=== PATIENT | female | born 1980 | race Caucasian/White ===

== ENCOUNTER 2022-02-10 17:43 | Outpatient (CLI) | payer MEDICAID, SELFPAY ==
--- OUTSIDE RECORDS SUMMARY | 2022-03-18 13:00 | XMS_ITS | Clinical Summary ---
:1980 Author Organization [facility] Address [address] [place] [address] Care Team Providers Name Role Phone Elsewhere, Pcp Primary Care Provider Unavailable Source Comments Patient records contain information from all sites at [facility]. For routine questions regarding patient records, call [phone] during business hours, M-F 8:00 AM - 5:00 PM Central Time. Record requests for emergency care only can be directed to [phone] at any time.[facility] Social History Tobacco Use Types Packs/Day [...] / Group Dates BLUE CROSS BCBS BLUE [id number] 2020-Pres ATTN: Radha martinez HMO BLUE SHIELD PLUS HMO ent CONSUMER [facility] [address] [address] [place] [address] Care Teams Competency Evaluated Nurse Aide Relationship Specialty Start Date End Date Elsewhere, Pcp PCP - General 06/14/18
--- OUTSIDE RECORDS SUMMARY | 2022-03-18 13:00 | XMS_ITS | Encounter Summary ---
:1980 Author Organization [facility] Address [address] [place] [address] Care Team Providers Name Role Phone Elsewhere, Pcp Primary Care Provider Unavailable Reason for Visit Reason Comments Drug Screen BIC Encounter Details Date Type Department Care Team Description 06/22/2019 Clinical Support Department of Mayuri Tuttle Drug Scre en (Primary Occupational Medicine Duy Garcia, M .P.H. Dx) in [facility] [address] [facility] [address] [place] [phone] Social History Tobacco Use Types Packs/Day Years Used Date Smoking Tobacco: Every Day Sex Assigned at Date Recorded Not on file documented as of this encounter Progress Notes Radha Walker L.P.N. - 06/22/2019 9:00 AM CDT Pre employment rapid uds completed for [employer]. Uneventful collection. documented in this encounter Plan of Treatment Scheduled Orders Name Type Priority Associated Diagnoses Order S chedule OCC Drug screening Procedures Routine Drug Screen Ordered: 06/22/2019 documented as of this encounter Visit Diagnoses Diagnosis Drug Screen - Primary documented in this encounter Care Teams Log Washer Relationship Specialty Start Date End Date Elsewhere, Pcp PCP - General 06/14/18 documented as of this encounter
--- OUTSIDE RECORDS SUMMARY | 2022-03-18 13:00 | XMS_ITS | Encounter Summary ---
:1980 Author Organization [facility] Address [address] [place] [address] Care Team Providers Name Role Phone Elsewhere, Pcp Primary Care Provider Unavailable Encounter Details Date Type Department Care Team Description 02/21/2021 Orders Only [facility] PCP [facility] Sa kari Damian M.D. [address] [place], [place] [phone] (Wo rk) Social History Tobacco Use Types Packs/Day Years Used Date Smoking Tobacco: Every Day Sex Assigned at Date Recorded Not on file documented as of this encounter Plan of Treatment Not on filedocumented as of this encounter Visit Diagnoses Not on filedocumented in this encounter Care Teams Regional Medical Director Relationship Specialty Start Date End Date Elsewhere, Pcp PCP - General 06/14/18 documented as of this encounter
--- OUTSIDE RECORDS SUMMARY | 2022-03-18 13:00 | XMS_ITS | Encounter Summary ---
:1980 Author Organization [facility] Address [address] [place] [address] Care Team Providers Name Role Phone Unavailable Primary Care Provider Unavailable Encounter Details Date Type Department Care Team Description 10/27/2011 - Hospital Encounter HX [facility] PSYCH JoeBassem Gregg, 10/31/2011 M.D. [address] [place] [id number] Social History Tobacco Use Types Packs/Day Years [...] 10/31/2011 8:20 AM CDT Discharge Medication List [facility] [address] [place] [id number] Discharge Medication List Name: BEE POLANCO Current Date: 10/31/2011 08:20:38 : 1980 12:00 AM Patient Address: [address] [facility] [address] Patient Primary Care Provider: Name: JEM SUAREZ MD Phone: Discharge Diagnosis: Major Depressive Disorder, Recurrent Episode, in Partial or Unspecified Remission [facility] in [place] would like to thank you for allowing [...] BASSEM DIAZ MD Signed On:31-OCT-2011 08:11:15 Source: [facility] Datanomic Document Id: [id number] Laquita Funk R.N. - 10/31/2011 8:20 AM CDT Inpatient Discharge Instructions [facility] [address] [place] [address] Patient Discharge Instructions Name: BEE POLANCO Current Date: 10/31/2011 08:20:35 : 1980 12:00 AM Patient Address: [address] [place] [address] Patient Primary Care Provider: Name: JEM SUAREZ MD Phone: Discharge Diagnosis: Major Depressive Disorder, Recurrent Episode, in Partial or Unspecified Remission [facility] in [place] would like to thank you for allowing us to assist you with your healthcare needs. The following includes patient education materials and information regarding your injury/illness. Comment: BEE POLANCO has been given the following list of follow-up instructions, prescriptions, and patient education materials: Follow-up Instructions With: Address: When: Dr. Suarez [facility], [address] [place] [address] 11/05/2011 02:20:00 Comments: Primary Care provider SHERRI Braden NICOLE ANN , have received the attached patient education materials/instructions and have verbalized understanding: Patient Signature Date/Time Provider Signature Date/Time 18120 Depression: Tips to Help Yourself As your [...] when you can. Go to a movie, Moximedgame, voodoo service, or social event. Talk openly with [...] diet helps keep your body healthy. ?? 5460-2298 [employer], [address] [place] [address], [place] [address]. All rights reserved. This information is not intended as a substitute for professional medical care. Always follow your healthcare professional's instructions. [facility] [address] [place], [place] [address] Name: BEE POLANCO Current Date: 10/31/2011 08:20:35 This document has images extracted. Please consider using YingYang for all your patient education needs. Source: [facility] Datanomic Document Id: [id number] Laquita Funk R.N. - 10/31/2011 7:53 AM [...] FUNK RN - 10/31/2011 7:53 CDT [facility] Document Id: [id number] Bassem Diaz M.D. - 10/31/2011 12:00 AM CDT DISCHARGE SUMMARY Event Type: SUM Date of : 1980 DICTATED BY: Bassem Diaz MD DATE OF SERVICE: 10/31/2011 DISCHARGE DIAGNOSES [place] 1: Anxiety disorder, not otherwise specified. Major depression. Partner relational problem. Alcohol dependence. Cannabis dependence. Lorazepam abuse. [place] 2: Antisocial features. [place] 3: Night sweats thought to be possibly secondary to paroxetine use. [place] 4: Severity of psychosocial stressors: Family, interpersonal, and employment concerns. [place] 5: Current GAF: 37. IDENTIFICATION: This is a 31-year-old woman residing in [place], [place]. SIGNIFICANT FINDINGS: This is the first [facility] Psychiatric Services Unit admission for this woman. [...] be seen by Dr. Suarez for followup. MT:fredis cc Electronically Signed By: BASSEM DIAZ MD On: 11/03/2011 09:20 AM Source: [facility] AMCDICTAPHONESYS Document Id: [id number] Jorge Ly R.N. - 10/27/2011 11:19 PM CDT ED Discharge Instructions [place] [address] [place] [address] Name: BEE POLANCO Date of : 1980 12:00 AM Visit Date: 10/27/2011 7:21 PM Address: [address] [place] [address] Primary Care Provider: JEM SUAREZ MD IMPORTANT: [facility] in [place] would like to thank you for allowing [...] arrange a ride home with a responsible libertarian. SHERRI Braden NICOLE ANN , or responsible libertarian have received this information and my questions [...] arrange a ride home with a responsible libertarian. I, BEE POLANCO , or responsible libertarian have received this information and my questions have been answered. I have discussed any challenges I see with this plan with the nurse or physician. Patient Signature or Responsible Constitution Party/Relationship Date/Time Provider Signature Date/Time Source: [employer] Document Id: [id number] Jorge Ly R.N. - 10/27/2011 11:19 PM CDT ED Depart Summary [facility] Emergency Department / Urgent Care Clinical Discharge Summary PERSON INFORMATION Name BEE POLANCO Age 31 Years 1980 12:00 AM Sex Female Language Bengali PCP JEM SUAREZ MD Marital Status Single Visit Id Visit Reason DIRECT ADMIT Specialty Enc Type Emergency Med Service Emergency Medicine Referred by [facility] ED/UC Discharge Tracking Id [id number] Checkout 10/27/2011 11:19 PM Checkin 10/27/2011 7:21 PM Acuity Dispo Type Admitted as Inpatient to this Hospital Arrival 10/27/2011 7:21 PM Reg Status Complete LOS 000 03:58 Address: [address] [place] [address] Comment: PROVIDER INFORMATION Provider Role Provider Contact Time DIAGNOSIS Comment: PATIENT EDUCATION INFORMATION Instructions: Follow up: Source: [employer] Document Id: [id number] documented in this encounter Progress Notes Batool [...] MATTHEWS OTR - 10/31/2011 11:19 CDT [facility] Document Id: [id number] Bassem Diaz M.D. - 10/31/2011 12:00 AM CDT PROGRESS/PROCEDURE NOTE Event Type: PROG Date of : 1980 DICTATED BY: Bassem Diaz MD DATE: 10/31/2011 IMPRESSION/REPORT/PLAN IMPRESSION: [place] 1: Alcohol dependence. Cannabis dependence. Lorazepam abuse. Substance-induced mood disorder versus mood disorder, not otherwise specified versus major depressive disorder. Anxiety, not otherwise specified. [place] 2: Antisocial features. [place] 3: History of self-injurious behaviors. [place] 4: Severity of psychosocial stressors: Relationship; parenting; unemployment concerns; financial concerns. [place] 5: Current GAF: 37. PLAN: The patient [...] relapse and suicide prevention plan with her. MT:kati cc Electronically Signed By: BASSEM DIAZ MD On: 11/03/2011 09:19 AM Source: [facility] AMCDICTAPHONESYS Document Id: [id number] Conversion, Historical Provider Ser - 10/30/2011 2:35 PM CDT clinical staffing note Clinical Staffing Note In attendance: Psychiatrist: Dr. Diaz Psychologist: Dr. Faustin Inpatient Therapist/Supervisor [employer]: Dr. White Wellness Practitioner: Maty Stratton Occupational [...] Date: 10/31/11 Electronically Signed By: MESHA WHITE PSY.D.,VIKRAM On: 10/30/2011 02:40 PM Source: [facility] POWERCHART Document Id: [id number] Migel Stratton - 10/30/2011 1:40 PM CDT WELLNESS PT JOINING IN THE LEARNING AND PRACTICE OF BREATHWORK AND IMAGERY. THE PT STATES THAT SHE HAS NEVEREXPERIENCED IMAGERY A CALMING TECHNIQUE BUT SHE DID FIND IT VERY HELPFUL THIS MORNING AND LEFT HER FEELING VERY RELAXED. Electronically Signed By: MIGEL STRATTON On: 10/30/2011 01:42 PM Source: [employer] Document Id: [id number] Batool Matthews OFredy - 10/30/2011 1:09 PM CDT OT Daily [...] MATTHEWS OTR - 10/30/2011 13:09 CDT Source: [employer] Document Id: [id number] Bassem Diaz M.D. - 10/30/2011 12:00 AM CDT PROGRESS/PROCEDURE NOTE Event Type: PROG Date of : 1980 DICTATED BY: Bassem Diaz MD DATE: 10/30/2011 IMPRESSION/REPORT/PLAN [place] 1: Major depression. Anxiety disorder, not otherwise specified. Partner relational problem. Alcohol abuse versus dependence. Cannabis abuse. Lorazepam abuse by history. [place] 2: Antisocial features. [place] 3: History of self-injurious behaviors. PLAN: C4 [...] after discussion with her outpatient provider prescriber. MT:sandy cc Electronically Signed By: BASSEM DIAZ MD On: 11/03/2011 09:20 AM Source: [facility] AMCDICTAPHONESYS Document Id: [id number] Conversion, Historical Provider Ser - 10/29/2011 1:50 PM CDT CBT GROUP Reviewed Cognitive Behavioral Therapy (CBT): cognitive distortions and schemas. Met goal by identifying distorted thoughts and schemas. Actively participated in group. Demonstrated a very pleasant attitude. Electronically Signed By: MESHA WHITE PSY.D., LP On: 10/29/2011 01:50 PM Source: [employer] Document Id: [id number] Batool Matthews O.T. - 10/29/2011 1:40 PM [...] MATTHEWS OTR - 10/29/2011 13:40 CDT Source: [employer] Document Id: [id number] Bassem Diaz M.D. - 10/29/2011 12:00 AM CDT PROGRESS/PROCEDURE NOTE Event Type: PROG Date of : 1980 DICTATED BY: Bassem Diaz MD DATE: 10/29/2011 IMPRESSION/REPORT/PLAN ASSESSMENT: [place] 1: Major depressive disorder. Rule out substance-induced mood disorder. Rule out anxiety disorder. Partner relational conflict. Alcohol abuse versus dependence. Lorazepam abuse (by history.). [place] 2: Deferred. [place] 3: History of self-injurious behaviors. PLAN: C4 [...] her mother, and also her drinking pattern. MT:hai cc Electronically Signed By: BASSEM DIAZ MD On: 11/03/2011 09:21 AM Source: [facility] AMCDICTAPHONESYS Document Id: [id number] YT Haresh Faustin Psy.D., L.P. - 10/29/2011 12:00 AM CDT PROGRESS/PROCEDURE NOTE Event Type: PROG Date of : 1980 DICTATED BY: Haresh Faustin PsyD, LP DATE: 10/29/2011 IMPRESSION/REPORT/PLAN [place] 1: Major depression. Anxiety disorder, not otherwise specified. Partner relational problem. Alcohol abuse versus dependence. Cannabis abuse. Lorazepam abuse by history. [place] 2: Antisocial features. PLAN: Continue with evaluation [...] FAUSTIN PsyD/VIKRAM On: 10/29/2011 01:48 PM Source: [facility] AMCDICTAPHONESYS Document Id: [id number] Conversion, Historical Provider Ser - 10/28/2011 2:27 PM CDT CBT GROUP Patient attended Cognitive Behavioral Therapy (CBT) group: [facility]. Patient was activelyengaged in treatment and completed activity of identifying negative thoughts, cognitive distortions,and more realistic ways of thinking. Patient displayed a pleasant attitude. Electronically Signed By: MESHA WHITE PSY.D., LP On: 10/28/2011 02:27 PM Source: [facility] POWERCHART Document Id: [id number] Sunil Faye O.T.AJoanna - 10/28/2011 12:28 PM CDT OT Daily [...] FAYE OT - 10/28/2011 12:28 CDT Source: [facility] GoPlaceItCHART Document Id: [id number] Batool Matthews O.T. - 10/28/2011 12:00 AM CDT PROGRESS/PROCEDURE NOTE Event Type: PROG Date of : 1980 DICTATED BY: JOYCE Motley [place]# [id number] DATE: 10/28/2011 PRIMARY DIAGNOSIS: The patient reported she has a history of depression. REASON FOR ADMISSION: The patient stated, suicidal thoughts because of our relationship. The patient was assessed at [facility] Emergency Department due to depression and suicidal thoughts with a plan to overdose on her medications. The patient was transferred to [facility] Psychiatric Services Unit for further evaluation [...] to go to college horticultural and also Czech. 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 INTERESTS/LEISURE: The patient likes to spend [...] basic expenses. 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 SOCIAL ENVIRONMENT: The [...] MATTHEWS OTR On: 10/31/2011 11:22 AM Source: [facility] AMCDICTAPHONESYS Document Id: [id number] documented in this encounter H&P Notes Batool [...] MATTHEWS OTR - 10/28/2011 14:22 CDT Source: [facility] POWERCHART Document Id: [id number] YT Bassem Diaz M.D. - 10/28/2011 12:00 AM CDT HISTORY & PHYSICAL Event Type: ADM DATE OF EXAMINATION: 10/28/2011 DATE OF ADMISSION: 10/27/2011 IMPRESSION/REPORT/PLAN ASSESSMENT: [place] 1: Major depressive disorder. Rule out substance-induced mood disorder. Rule out anxiety disorder. Partner relational problem. Alcohol abuse versus dependence. Lorazepam abuse (by history). [place] 2: Deferred. [place] 3: History of self-injurious behaviors. [place] 4: Severity of psychosocial stressors: Employment, financial, relationship concerns. [place] 5: Current Global Assessment of Functioning (GAF): [...] This is a 31-year-old woman residing in [place], [place]. CHIEF COMPLAINT: Just problems. HISTORY OF PRESENT ILLNESS This is the first [facility] Inpatient Psychiatric Services Unit admission for this [...] hours p.r.n. ALLERGIES No known drug allergies. Xetv-scx-hveuwqc medication use: Denied. Alcohol use: Yes, not [...] SOCIAL HISTORY The patient was born in [place], [place]. She has 2 siblings. She states, [...] to school when my mom was in [employer]. She graduated in 1998 after which, I [...] Substance abuse. Dictated By: Bassem Diaz MD MT:maninder cc Electronically Signed By: BASSEM DIAZ MD On: 11/03/2011 09:21 AM Source: [facility] AMCDICTAPHONESYS Document Id: [id number] documented in this encounter Consult Notes Conversion, [...] bus station and heading back to the [facility]. She is wanting to do some individual counseling and possible couples counseling. She denied that there is any access to guns or stockpiles of medications. ECW:fredis cc Electronically Signed By: MESHA WHITE PSY.D., LP On: 11/04/2011 08:18 AM Source: [facility] AMCDICTAPHONESYS Document Id: [id number] Conversion, Historical Provider Ser - 10/29/2011 12:00 AM CDT INPATIENT PSYCH HISTORY Event Type: CON Date of : 1980 DICTATED BY: Mesha White PsyD DATE: 10/29/2011 COLLATERAL INFORMATION: I spoke with the patient's mother, Eulalia Bernstein, (phone number is [phone]). She stated the patient has not been [...] PSY.D., LP On: 10/30/2011 08:02 AM Source: [facility] AMCDICTAPHONESYS Document Id: [id number] Orville Andres L.A.D.C. - 10/29/2011 12:00 AM CDT CONSULTATION Event Type: CON Date of : 1980 DICTATED BY: LIZ Frey II [facility] FAMILY PHYSICIAN: TYPE OF CONSULTATION: CHEMICAL DEPENDENCY [...] report. HIREN:ananth cc Electronically Signed By: ORVILLE ANDRES ,[facility] On: 11/04/2011 09:03 AM Source: [facility] AMCDICTAPHONESYS Document Id: [id number] Conversion, Historical Provider Ser - 10/28/2011 12:00 AM CDT INPATIENT PSYCH HISTORY Event Type: CON Date of : 1980 DICTATED BY: Mesha White PsyD DATE: 10/28/2011 IDENTIFYING INFORMATION: Patient is a 31-year-old female from [place]. PRESENTING PROBLEM: The patient reported that she [...] denied developmental delays. She was born in [place] and raised all over [place] saying she moved around a lot. She [...] access to guns or stockpiles of medications. SPIRITUALITY/SABIANISM BELIEF: The patient denied. PATIENT GOALS FOR TREATMENT: Patient reported I want to get my head straight. She also expressed a desire to look at her medications. COLLATERAL INFORMATION: Patient authorized contact with her mother, Latanya Bernstein ([phone]). ECW:jonny/maninder/jonny cc Electronically Signed By: MESHA WHITE PSY.D., LP On: 10/30/2011 08:11 AM Modified by and Electronically Signed by: MESHA WHITE PSY.D.,VIKRAM On: 10/30/2011 08:11 AM Source: [facility] AMCDICTAPHONESYS Document Id: [id number] Nani Strong, Ph.D. - 10/27/2011 12:00 AM CDT CONSULTATION Event Type: CON Date of : 1980 DICTATED BY: Nani Strong, PhD, FAMILY PHYSICIAN: TYPE OF CONSULTATION: Mental Health Phone Consultation DATE OF CONSULTATION: 10/27/2011 CHIEF COMPLAINT/REASON FOR VISIT Bee Polanco a 31-year-old female from [place], [place], who is currently presenting to the Emergency Department in [place]. She has been depressed with suicidal thoughts and plan of overdosing on all her medication. Based on the assessment of the patient by the Emergency Department personnel at [place], it was determined that the patient is in need of inpatient psychiatric care. However, [place] has no psychiatric beds available and thus the need for the patient to be transferred for this care. [facility] [place] was contacted to determine if the patient can be received by this facility. We are doing so. PRESENTING PROBLEM: Bee Polanco is a 31-year-old female who has reportedly been experiencing depression, possibly connected to relationship difficulties with her significant other. It was reported by the Emergency Department staff at [place] that she has been doing some binge [...] She did indicate to nursing staff at [place] that her plan is to overdose on all of her medications. The patient currently is not involved in any mental health services. She had been seen in the past year in the Emergency Department at [place], and this was reportedly for mental health support. At that time, she was recommended to seek outpatient mental health services, but she has reportedly not done so to date. The patient is currently prescribed both Paxil and Ativan by her primary care provider. She did have a blood alcohol level of 0.01 on this day according to the staff at [place]. She is also positive for THC by report. The patient reportedly has no legal issues pending at this time. She has presented as cooperative and not violent or resistant. Nonetheless, [place] is placing her on a hold. The patient is going to be transferred to [facility] [place], specifically to be admitted to the Psychiatric Services Unit. This will be the first inpatient psychiatric hospitalization for the patient according to [place]. As noted, she is being placed on a hold and will be transported by ambulance. Her significant other has indicated that once she is deemed ready for discharge from inpatient psychiatric care he is willing to travel to [place] in order to transport her back to her community. BERNARDA:kati cc Electronically Signed By: NANI STRONG PhD/LP On: 10/28/2011 08:01 AM Modified by and Electronically Signed by: NANI STRONG PhD/LP On: 10/28/2011 08:01 AM Source: [facility] AMCDICTAPHONESYS Document Id: [id number] documented in this encounter Nursing Notes Laquita [...] FUNK RN On: 10/31/2011 07:57 AM Source: [facility] Document Id: [id number] Kendra Cohen R.N. - 10/31/2011 12:50 AM CDT sleep Pt sleeping Electronically Signed By: KENDRA COHEN RN On: 10/31/2011 12:50 AM Source: [employer] Document Id: [id number] Laquita Funk R.N. - 10/30/2011 11:55 AM CDT Wanting information on taking a bus back to the [facility]. Gave patient information taking shuttle to [place] from [employer] shuttle leaves at 2 p.m. checking by 1:45 and cost is $40.50 and would arrive in [facility] at 5:30 p.m. Electronically Signed By: LAQUITA FUNK RN On: 10/30/2011 11:57 AM Source: [facility] Document Id: [id number] Amelia Liu R.N. - 10/30/2011 5:33 AM CDT slept all night, offers no complaints. Electronically Signed By: AMELIA SMITH RN On: 10/30/2011 05:33 AM Source: [facility] Document Id: [id number] Laquita Funk R.N. - 10/29/2011 1:33 PM CDT [facility]. [...] FUNK RN On: 10/29/2011 01:38 PM Source: [facility] Document Id: [id number] Linda Yadav R.N. - 10/28/2011 10:20 PM [...] YADAV RN On: 10/28/2011 10:22 PM Source: [facility] Document Id: [id number] Janet Suero R.N. - 10/28/2011 1:31 AM CDT pt note Sent from [place] ER as they had no beds, for [...] her boyfriend, although they live together...will need social media content manager to look in to that matter. Denies any health issues. Cooperative, calm and pleasant. Electronically Signed By: JANET SUERO RN On: 10/28/2011 01:41 AM Source: [facility] GoPlaceItCHART Document Id: [id number] documented in this encounter ED Notes Sabrina [...] RN - 10/27/2011 23:06 CDT Allergy Source: [facility] POWERCHART Document Id: [id number] documented in this encounter Miscellaneous Notes Miscellaneous - Laquita Funk R.N. - 10/31/2011 8:20 AM CDT Inpatient Patient Education The following Patient Education Materials have been given to the patient: Patient Education Materials: [facility] Depression: Tips to Help Yourself David [facility] [address] Depression: Tips to Help Yourself As your [...] you can. Go to a movie, ballgame, voodoo service, or social event. Talk openly with [...] diet helps keep your body healthy. ?? 3180-2299 [employer], [address] [place] [address], [place] [address]. All rights reserved. This information is not intended as a substitute for professional medical care. Always follow your healthcare professional's instructions. This document has images extracted. Please consider using YingYang for all your patient education needs. Source: [facility] POWERCHART Document Id: [id number] Miscellaneous - Bassem Diaz M.D. - 10/31/2011 8:11 AM CDT Inpatient Patient Education The following Patient Education Materials have been given to the patient: Patient Education Materials: No instructions were provided. No instructions were provided. Source: [facility] Datanomic Document Id: [id number] Miscellrose - Laquita Funk R.N. - 10/31/2011 7:52 [...] FUNK RN - 10/31/2011 7:52 CDT Source: [facility] [employer]an[employer] Document Id: [id number] Miscellaneous - Laquita Funk R.N. - 10/31/2011 [...] FUNK RN - 10/31/2011 7:50 CDT Source: [facility] Document Id: [id number] Miscellaneous - Kendra Cohen R.N. - 10/31/2011 12:58 [...] COHEN RN - 10/31/2011 0:58 CDT Source: [facility] Document Id: [id number] Cheikh - Kendra Cohen R.N. - 10/31/2011 12:58 [...] COHEN RN - 10/31/2011 0:58 CDT Source: [facility] Datanomic Document Id: [id number] Cheikh - Marnie Peralta R.N. - 10/30/2011 7:13 PM CDT Adult [...] QURESHI RN - 10/30/2011 19:13 CDT Source[facility] Document Id: [id number] Marnie Haynes R.N. - 10/30/2011 5:33 PM [...] Adequate to Meet Safety Needs : Yes MANRIE QURESHI RN - 10/30/2011 17:33 CDT Psycho/Emotional [...] QURESHI RN - 10/30/2011 17:33 CDT Source: [facility] FortressCH[facility] Document Id: [id number] Miscellaneous - Laquita Funk R.N. - 10/30/2011 [...] FUNK RN - 10/30/2011 8:46 CDT Source: [employer] Document Id: [id number] Miscellaneous - Laquita Funk R.N. - 10/30/2011 [...] FUNK RN - 10/30/2011 8:41 CDT Source: [facility] POWERCHART Document Id: [id number] Miscellaneous - Amelia Liu R.N. - 10/30/2011 [...] SMITH RN - 10/30/2011 3:25 CDT Source: [facility] [employer]anomic Document Id: [id number] Miscellaneous - Amelia Liu R.N. - 10/30/2011 [...] SMITH RN - 10/30/2011 3:25 CDT Source: [facility] GoPlaceItCHART Document Id: [id number] Miscellaneous - Laquita Funk R.N. - 10/29/2011 [...] FUNK RN - 10/29/2011 17:11 CDT Source: [employer] Document Id: [id number] Miscellaneous - Laquita Funk R.N. - 10/29/2011 [...] FUNK RN - 10/29/2011 10:13 CDT [facility]: [facility] Document Id: [id number] Miscellaneous - Laquita Funk R.N. - 10/29/2011 [...] FUNK RN - 10/29/2011 10:13 CDT Source: [employer] Document Id: [id number] Miscellaneous - Ariel Sutherland RKallie - 10/29/2011 [...] SUTHERLAND RN - 10/29/2011 0:05 CDT Source: [employer] Document Id: [id number] Cheikh - Ariel Sutherland R.N. - 10/29/2011 [...] SUTHERLAND RN - 10/29/2011 0:04 CDT Source: [employer] Document Id: [id number] Cheikh - Linda Yadav R.N. - 10/28/2011 [...] YADAV RN - 10/28/2011 21:19 CDT Source: [facility] Document Id: [id number] Miscellaneous - Linda Yadav, R.N. - 10/28/2011 [...] YADAV RN - 10/28/2011 21:18 CDT Source: [employer] Document Id: [id number] Miscellaneous - Magnolai Han RJoannaNJoanna - 10/28/2011 2:32 PM CDT [...] 14:32 CDT Psycho/Emotional Detailed Assessment : Yes SERGIO HANCHIKI Quan RN - 10/28/2011 14:32 CDT Psycho/Emotional Detailed Hallucinations Present : None Orientation : Oriented x 3 Participates in Age-specific Activities : Yes Cognition : Cooperative with 1:1 Behavior & General Appearance : Appropriate for situation, Social with peers and staff, interacts appropriately, ADLs self-initiated Behavior/Interaction with Peers/Staff Appropriate : Yes Thought Process Intact : Yes MAGNOLIA HAN RN - 10/28/2011 14:32 CDT Suicide Risk Re-Assessment Ongoing Behaviors/Threats of Harm to Self : No Behaviors/Threats of Harm to Others : No Do you have a plan for suicide? : No MAGNOLIA HAN RN - 10/28/2011 14:32 CDT Nutrition Eating Difficulties : None Appetite : Good MAGNOLIA HAN RN - 10/28/2011 14:32 CDT Stepan Sensory Perception Stepan : No impairment Moisture Stepan : Rarely moist Activity Stepan : Walks frequently Mobility Stepan : No limitations Nutrition Stepan : Adequate Friction and Shear Stepan : No apparent problem Stepan Score : 22 RHONDAOMAYRASERGIOCHIKI Quan RN - 10/28/2011 14:32 CDT Hendrich [...] Fall Risk Score Hendrich II : 1 MAGNOLIA HAN RN - 10/28/2011 14:32 CDT Education General Patient Education Powergrid Topics : Plan of care, Other: Take 5 Individuals Taught : Patient Teaching Evaluation : Verbalizes understanding MAGNOLIA HAN RN - 10/28/2011 14:32 CDT Source: [facility] POWERCHART Document Id: [id number] Miscellaneous - Magnolia Han R.N. - 10/28/2011 [...] HAN RN - 10/28/2011 10:24 CDT Source: [employer] Document Id: [id number] Miscellaneous - Janet Suero RJoannaNJoanna - 10/28/2011 [...] SUERO RN - 10/28/2011 4:58 CDT Source: [employer] Document Id: [id number] Cheikh - Janet Suero R.N. - 10/28/2011 [...] SUERO RN - 10/28/2011 1:29 CDT Source: [facility] POWERCHART Document Id: [id number] Cheikh - Janet Suero R.N. - 10/28/2011 [...] SUERO RN - 10/28/2011 0:54 CDT Source: [facility] POWERCHART Document Id: [id number] Miscellaneous - Janet Suero R.N. - 10/28/2011 [...] SUERO RN - 10/28/2011 0:52 CDT Source: [employer] Document Id: [id number] Miscellaneous - Janet Suero R.N. 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 Notified : No JANET SUERO QUENTIN - [...] CDT Reporting : Other: has restarining order agianst JANET Lees Rose Marie RN - 10/28/2011 0:41 CDT Behavioral Health Screen/Safety Assmt Depressed : Yes Hearing Voices : No Thoughts of Harming Self : Yes BH Thoughts : No Suicide Attempts : No Suicide Plan : Yes Self-destructive Behaviors : No Thoughts of Harming Others : No Time Placed Under Observation : 0:50 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 - 10/27/2011 11:16 PM CDT Communication Note Communication Note Entered On: 10/27/2011 23:16 CDT Performed On: 10/27/2011 23:16 CDT by JORGE LY RN Communication Assessment Communication Note : Patient changed into scrubs and searched by security. Taken to PSU by security. JORGE LY RN - 10/27/2011 23:16 CDT Source: [employer] Document Id: [id number] documented in this encounter Plan of Treatment [...] M.D. LAB HISTORICAL ORDERS Performing Organization Address City/[facility]/ZIP Code Phon e Number POWERCHART Urinalysis, Midstream, with culture if indicated (10/28/2011 9:10 PM CDT) [facility] gist Method Time Signature Source Clean Void POWERCHART Urine HXUr Color Yellow Yellow POWERCHART Appearance Clear Clear POWERCHART Specific 1.010 1.003 - POWERCHART [place], POCT, U 1.035 pH, POCT, Urine 6.5 [...] M.D. LAB URINE ORDERABLES Performing Organization Address [facility] Phon e Number POWERCHART Thyroid-Stimulating Hormone-Sensitive (s-TSH) (10/28/2011 5:32 AM CDT) athologist Signature TSH 2.0 0.3 - 5.0 POWERCHART (Thyrotropin) MIUL Specimen (Source) Anatomical Collection Method Collection Time Re ceived Time Location / / Volume Laterality Blood 10/28/2011 5:32 AM CDT Edwardo Whitfield LAB BLOOD ADD-ON Performing Organization Address City/[facility]/ZIP Code Phon e Number POWERCHART documented in this encounter Visit Diagnoses Not on filedocumented in this encounter
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
== END 2022-02-10 17:44 | disposition home or self-care (01) ==
LOC: AMB 03-18 12:24
PROVIDERS: PCP Family Medicine; Visit Provider Family Medicine
DX: S89.91XA Unspecified injury of right lower leg, initial encounter (principal); W19.XXXA Unspecified fall, initial encounter; Y92.009 Unspecified place in unspecified non-institutional (private) residence as the place of occurrence of the external cause
CPT/HCPCS: A0425; A0433

== ENCOUNTER 2022-02-10 18:19 | Emergency (ER) | payer MEDICAID, SELFPAY ==
[2022-02-10] VITALS (7 sets, daily range): BP systolic 125–143; BP diastolic 77–87; PULSE 82; RESP 20; TEMP 37.1; O2SAT 97–100; BMI 28.2
--- NOTE | 2022-02-10 18:45 | CRLHL7_ITS ---
For Patients: As a result of the Cures Act, medical imaging exams and procedure reports are released immediately into your electronic medical record. You may view this report before your referring provider. If you have questions, please contact your health care provider. Indication: Injury and pain. Technique: Left knee 2 views Comparison: None Findings: Bones: Alignment is normal. No fractures or bone lesions. Joint spaces: No joint effusion. Joint spaces are well maintained. No degenerative changes. Soft tissues: Unremarkable. Impression: No sign of acute injury. Dictated by Eder Dickson MD @ 02/10/2022 7:34:34 PM (Electronically Signed)
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
[2022-02-10] MEDS: 0.9 % SODIUM CHLORIDE 1000 ml 1,000 ML 6000 ML IV (19:02)
[2022-02-10] MEDS: ONDANSETRON 2 MG/ML inj 4 MG IVP (19:02)
[2022-02-10] MEDS: HYDROmorphone 0.5 mg/0.5 ml inj 1 MG IVP (19:02)
[2022-02-10] MEDS: MIDAZOLAM HCL 1 MG/ML inj IVP (19:02)
[2022-02-10 19:26] LABS: Basophils Percent Auto 0.4 % (0.0-3.0); Eosinophils Percent Auto 0.4 % (0.0-7.0); Hematocrit 43.6 % (33.0-51.0); Hemoglobin* 14.5 gm/dL (12.0-16.0); Immature Granulocytes Abs Auto 0.02 K/uL (0.00-0.30); Mean Corpuscular HGB Conc 33 gm/dL (32-36); Mean Corpuscular Hemoglobin 31 pg (26-34); Mean Corpuscular Volume 92 fL (80-100); Monocytes Percent Auto 6.3 % (0.0-11.0); Neutrophils Percent Auto 76.7 % (42.0-72.0); Platelet Count* 211 K/uL (140-440); RDW Coefficient of Variation % 12.9 % (11.5-15.5); Red Blood Count 4.75 m/uL (4.00-5.20); White Blood Count* 11.25 K/uL (4.50-11.00)
[2022-02-10 19:35] LABS: Slide Review Reflex No
[2022-02-10 19:37] LABS: Chloride* 110 mmol/L (96-114)
[2022-02-10 19:38] LABS: Albumin* 4.3 g/dL (3.3-5.0); Potassium* 3.4 mmol/L (3.6-5.1); Sodium* 143 mmol/L (135-149)
[2022-02-10 19:41] LABS: Alanine Aminotransferase* 16 U/L (4-35); Alkaline Phosphatase* 60 U/L (40-150); Aspartate Amino Transferase* 27 U/L (12-35); Bilirubin Direct* 0.1 mg/dL (0.0-0.5); Bilirubin Total* 0.3 mg/dL (0.1-1.5); Blood Urea Nitrogen* 11 mg/dL (5-24); Carbon Dioxide* 22 mmol/L (20-32); Creatinine* 0.8 mg/dL (0.5-1.5); Est. Creatinine Clearance* 85.76; Estimated Glomerular Filt Rate 94 ml/min; Glucose* 81 mg/dL (60-115); Total Protein* 6.7 g/dL (6.0-8.3)
[2022-02-10 19:42] LABS: Calcium* 8.5 mg/dL (8.4-10.6)
--- OUTSIDE RECORDS SUMMARY | 2022-02-10 19:51 | XMS_ITS | Clinical Summary ---
:1980 Author Organization [facility] Address [address] [place] [address] Care Team Providers Name Role Phone Elsewhere, Pcp Primary Care Provider Unavailable Source Comments Patient records contain information from all sites at [facility]. For routine questions regarding patient records, call [phone] during business hours, M-F 8:00 AM - 5:00 PM Central Time. Record requests for emergency care only can be directed to [phone] at any time.[facility] Social History Tobacco Use Types Packs/Day Years Used Date Smoking Tobacco: Every Day Sex Assigned at Date Recorded Not on file Last Filed Vital Signs Vital Sign Reading Time Taken Comments Blood Pressure 120/65 10/31/2011 7:11 AM CDT Pulse 66 10/31/2011 7:11 AM CDT Temperature - - Respiratory Rate - - Oxygen Saturation - - Inhaled Oxygen Concentration - - Weight - - Height 167 cm (5' 5.75) 10/28/2011 12:54 AM CDT Body Mass Index - - Plan of Treatment Health Maintenance Due Date Last Done Comments HIV Screening 1980 Hepatitis B Vaccines (1 of 3 - 1980 3-dose series) Hepatitis C Screening 1980 Lipid (Cholesterol) Screening 1980 Mammogram 1980 Depression Screening (Annual 04/13/2021 PHQ-2) COVID-19 Vaccine (3 - Booster for 05/16/2021 03/21/2021, Wolf series) Influenza Vaccine (#1) 2022 03/06/2021, 05/31/2020, 03/09/2019, Additional history exists Pneumococcal vaccine (0-64 years) 03/21/2022 03/21/2021 (2 - PCV) Cervical Cancer Screening 03/21/2024 03/21/2021 DTaP,Tdap,and Td Vaccines (3 - Td 08/18/2026 08/18/2016, or Tdap) Insurance Payer Benefit Plan Subscriber ID Effective Phone Address Typ e / Group Dates BLUE CROSS BCBS BLUE [id number] 2020-Pres ATTN: Radha martinez HMO BLUE SHIELD PLUS HMO ent [employer] [facility] [address] [address] [place] [address] Care Teams Piping Drafter Relationship Specialty Start Date End Date Elsewhere, Pcp PCP - General 06/14/18
--- OUTSIDE RECORDS SUMMARY | 2022-02-10 19:51 | XMS_ITS | Encounter Summary ---
:1980 Author Organization [facility] Address [address] [place] [address] Care Team Providers Name Role Phone Elsewhere, Pcp Primary Care Provider Unavailable Encounter Details Date Type Department Care Team Description 02/21/2021 Orders Only [facility] PCP TH Sa kari Damian M.D. [address] [place], [place] [phone] (Wo rk) Social History Tobacco Use Types Packs/Day Years Used Date Smoking Tobacco: Every Day Sex Assigned at Date Recorded Not on file documented as of this encounter Plan of Treatment Not on filedocumented as of this encounter Visit Diagnoses Not on filedocumented in this encounter Care Teams Planning Technician Relationship Specialty Start Date End Date Elsewhere, Pcp PCP - General 06/14/18 documented as of this encounter
--- OUTSIDE RECORDS SUMMARY | 2022-02-10 19:51 | XMS_ITS | Encounter Summary ---
:1980 Author Organization [facility] Address [address] [place] [address] Care Team Providers Name Role Phone Elsewhere, Pcp Primary Care Provider Unavailable Reason for Visit Reason Comments Drug Screen BIC Encounter Details Date Type Department Care Team Description 06/22/2019 Clinical Support Department of Mayuri Tuttle Drug Scre en (Primary Occupational Medicine Duy Garcia, M .P.H. Dx) in [facility] [address] [facility] [address] [place] [phone] Social History Tobacco Use Types Packs/Day Years Used Date Smoking Tobacco: Every Day Sex Assigned at Date Recorded Not on file documented as of this encounter Progress Notes Radha Walker, LJoannaP.N. - 06/22/2019 9:00 AM CDT Pre employment rapid uds completed for [employer]. Uneventful collection. documented in this encounter Plan of Treatment Scheduled Orders Name Type Priority Associated Diagnoses Order S chedule [facility] Drug screening Procedures Routine Drug Screen Ordered: 06/22/2019 documented as of this encounter Visit Diagnoses Diagnosis Drug Screen - Primary documented in this encounter Care Teams Tank Maker Wood Relationship Specialty Start Date End Date Elsewhere, Pcp PCP - General 06/14/18 documented as of this encounter
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
--- OUTSIDE RECORDS SUMMARY | 2022-02-10 19:51 | XMS_ITS | Encounter Summary ---
:1980 Author Organization [facility] Address [address] [place] [address] Care Team Providers Name Role Phone Unavailable Primary Care Provider Unavailable Encounter Details Date Type Department Care Team Description 10/27/2011 - Hospital Encounter HX [facility] PSY[facility] JoeBassem Gregg, 10/31/2011 M.D. [address] [place] [id number] Social History Tobacco Use Types Packs/Day Years Used Date Smoking Tobacco: Never Assessed Sex Assigned at Date Recorded Not on file documented as of this encounter Last Filed Vital Signs Vital Sign Reading Time Taken Comments Blood Pressure 120/65 10/31/2011 7:11 AM CDT Pulse 66 10/31/2011 7:11 AM CDT Temperature - - Respiratory Rate - - Oxygen Saturation - - Inhaled Oxygen Concentration - - Weight - - Height 167 cm (5' 5.75) 10/28/2011 12:54 AM CDT Body Mass Index - - documented in this encounter Discharge Summaries Laquita Funk R.N. - 10/31/2011 8:20 AM CDT Discharge Medication List [facility] [address] [place] [id number] Discharge Medication List Name: BEE POLANCO Current Date: 10/31/2011 08:20:38 : 1980 12:00 AM Patient Address: [address] [facility] [address] Patient Primary Care Provider: Name: JEM SUAREZ MD Phone: Discharge Diagnosis: Major Depressive Disorder, Recurrent Episode, in Partial or Unspecified Remission [facility] in [place] would like to thank you for allowing us to assist you with your healthcare needs. The following includes patient education materials and information regarding your injury/illness. Medications Medication/Strength Dose Route Frequency Indications/Special Instructions/Comments paroxetine (paroxetine 10 mg oral tablet) 30 mg Oral once a day Attention: If you have any medications at home that are not on this list, DO NOT take them until youcontact your provider for clarification. Comment: Electronically Signed By: BASSEM DIAZ MD Signed On:31-OCT-2011 08:11:15 [facility] Document Id: [id number] Laquita Funk R.N. - 10/31/2011 8:20 AM CDT Inpatient Discharge Instructions [facility] [address] [place] [address] Patient Discharge Instructions Name: BEE POLANCO Current Date: 10/31/2011 08:20:35 : 1980 12:00 AM Patient Address: [address] [place], [place] [id number] Patient Primary Care Provider: Name: JEM SUAREZ MD Phone: Discharge Diagnosis: Major Depressive Disorder, Recurrent Episode, in Partial or Unspecified Remission [facility] in [place] would like to thank you for allowing us to assist you with your healthcare needs. The following includes patient education materials and information regarding your injury/illness. Comment: BEE POLANCO has been given the following list of follow-up instructions, prescriptions, and patient education materials: Follow-up Instructions With: Address: When: Dr. Suarez [facility], [address] [place] [address] 11/05/2011 02:20:00 Comments: Primary Care provider I, BEE POLANCO , have received the attached patient education materials/instructions and have verbalized understanding: Patient Signature Date/Time Provider Signature Date/Time 26627 Depression: Tips to Help Yourself As your healthcare providers help treat your depression, you can also help yourself. Keep in mind that your illness affects you emotionally, physically, mentally, and socially. So full recovery will take time. Take care of your body and your soul, and be patient with yourself as you get better. Be With Others Dont isolate yourself-youll only feel worse. Try to be with other people. And take part in fun activities when you can. Go to a movie, makeristgame, scientology service, or social event. Talk openly with people you can trust. And accept help when its offered. Keep Your Perspective ?? Depression can cloud your judgment. So wait until you feel better before making major life decisions, such as changing jobs, moving, or getting or . ?? This illness is not your fault. Dont blame yourself for your depression. ?? Recovering from depression is a process. Dont be discouraged if it takes some time to feel better. ?? Depression saps your energy and concentration. So you wont be able to do all the things you used to do. Set small goals and do what you can. Take Care of Your Body People with depression often lose the desire to take care of themselves. That only makes their problems worse. During treatment and afterward, make a point to: ?? Exercise. Its a great way to take care of your body. And studies have shown that exercise helps fight depression. ?? Avoid drugs and alcohol. These may ease the pain in the short term. But theyll only make your problems worse in the long run. ?? Get relief from stress. Ask your healthcare provider for relaxation exercises and techniques to help relieve stress. Eat right. A balanced and healthy diet helps keep your body healthy. ?? 2692-7533 [employer], [address] [place] [address], [place] [address]. All rights reserved. This information is not intended as a substitute for professional medical care. Always follow your healthcare professional's instructions. [facility] [address] [place] [address] Name: BEE POLANCO Current Date: 10/31/2011 08:20:35 This document has images extracted. Please consider using [employer] for all your patient education needs. Source: [facility] [employer] Document Id: [id number] Laquita Funk R.N. - 10/31/2011 7:53 AM CDT Discharge Summary Discharge Summary Entered On: 10/31/2011 7:54 CDT Performed On: 10/31/2011 7:53 CDT by LAQUITA FUNK RN DC Information Discharged to : Home independently Current Home Treatments : None Mode of Discharge : Ambulatory Discharge Transportation : Private vehicle Accompanied By : Other: Significant other Date/Time of Discharge : 10/31/2011 9:30 CDT LAQUITA FUNK RN - 10/31/2011 7:53 CDT Education General Patient Education [employer] Topics : Discharge instructions/Medication list Individuals Taught : Patient Barriers to Learning : None evident Teaching Method : Explanation, Printed materials Teaching Evaluation : Verbalizes understanding LAQUITA FUNK RN - 10/31/2011 7:53 CDT Valuables/Belongings Valuables/Belongings Grid Valuables Sent to Secured Storage Clothes, Patient Valuables : Other: see belongings sheet LAQUITA FUNK RN - 10/31/2011 7:53 CDT Room Orientation/Facility Policy Reviewed : Yes Belongings Sent Home With : Patient at discharge Home Medication Disposition : None brought in with patient LAQUITA FUNK RN - 10/31/2011 7:53 CDT Source: [facility] [employer] Document Id: [id number] Bassem Diaz M.D. - 10/31/2011 12:00 AM CDT DISCHARGE SUMMARY Event Type: SUM Date of : 1980 DICTATED BY: Bassem Diaz MD DATE OF SERVICE: 10/31/2011 DISCHARGE DIAGNOSES Hermann 1: Anxiety disorder, not otherwise specified. Major depression. Partner relational problem. Alcohol dependence. Cannabis dependence. Lorazepam abuse. Hermann 2: Antisocial features. Hermann 3: Night sweats thought to be possibly secondary to paroxetine use. Hermann 4: Severity of psychosocial stressors: Family, interpersonal, and employment concerns. Hermann 5: Current GAF: 37. IDENTIFICATION: This is a 31-year-old woman residing in [place], [place]. SIGNIFICANT FINDINGS: This is the first [facility] admission for this woman. The patient reported stressors as, I've been going out and drinking and blacking out and doing some bad stuff... like having sex with people - I'm not but I'm with someone. The patient reported conflicts with the father of her children. She had recently quit her job. She does difficulties focusing. She acknowledged anhedonia and crying episodes. She believed her anxiety was more than normal. She reported feelings of helplessness, hopelessness, guilt, worthlessness, and also suicidal thoughts. The patient was brought to the Emergency Room, evaluated, and referred for inpatient psychiatric care. DIAGNOSTICS: Laboratory studies: Electrocardiogram showed marked bradycardia with sinus arrhythmia with a ventricular rate of 46 beats minutes, otherwise, normal electrocardiogram. No previous ECGs available. Urinalysis was unremarkable. TSH was 2.0 mIU/L. The patient did undergo a battery of cognitive and psychological inventories including the MARIO, MicroCog an MAQ. The MARIO was of questionable validity. On the [place] Addictions Questionnaire, the patient does report problems with both alcohol and marijuana. On the MicroCog Assessment Battery, the patient obtained a general cognitive functioning index score of 94, which falls in 34th percentile and in the average range overall. The patient did undergo a chemical dependency consultation and was found to have cannabis dependence, alcohol dependence, and lorazepam abuse. It was recommended she abstain from all alcohol or drug use. It was recommended she obtain outpatient chemical dependency treatment one-on-one and couples relationship counseling. HOSPITAL COURSE: The patient was treated with individual, group and milieu therapy. She had attended cognitive behavioral therapy sessions and other educational groups. She expressed a desire to renew her focus on developing her health by discontinuing the use of alcohol and marijuana. Lorazepam was discontinued due to her misuse pattern. Strategies to more effectively deal with current and anticipated stressors were reviewed. Her Paxil dose was decreased from 40 to 30 mg in order to reduce night sweats. Her condition was stabilized, and she was discharged 10/31/2011 at her request. CONDITION ON DISCHARGE: The patient denies active suicidal intent. The patient's primary care provider is Jem Suarez MD. DISCHARGE MEDICATIONS: Paroxetine 30 mg orally once a day. The patient will be seen by Dr. Suarez for followup. ND:fredis cc Electronically Signed By: BASSEM DIAZ MD On: 11/03/2011 09:20 AM Source: [facility] [employer] Document Id: [id number] Jorge Ly RJoannaN. - 10/27/2011 11:19 PM CDT ED Discharge Instructions [address] [address] Name: BEE POLANCO Date of : 1980 12:00 AM Visit Date: 10/27/2011 7:21 PM Address: [address] [place] [address] Primary Care Provider: JEM SUAREZ MD IMPORTANT: [facility] in [place] would like to thank you for allowing us to assist youwith your healthcare needs. The following includes patient education materials and information regarding your injury/illness. Follow-Up Instructions: Patient Education Materials: ED Tests and Procedures: Order Status Discharge Prescriptions & Home Medications: Medication/Strength Dose Route Frequency Indications/Special Instructions/Comments No Medications found Comment: Attention: If you have any medications at home that are not on this list, DO NOT take them until youcontact your provider for clarification. Medication Reconciliation: Reconciliation is a process of identifying the most accurate list of all medications a patient is taking - including name, dosage, frequency, and route - and using this list to provide to the patient information about how to take those medications. BEE POLANCO or designee has reviewed the home medications you have listed with us. Review the following instructions: You have NOT received any prescriptions and you have told us you are not currently taking any home medications You have NOT received any prescriptions. You have been provided a discharge medications list and you may CONTINUE taking your medications as previously prescribed by your regular providers. You have received the listed prescriptions and BEGIN all listed prescriptions as directed. Since you have listed no home medications, please check with your family doctor if you are taking any other medications. You have received the listed prescriptions and BEGIN all listed prescriptions as directed. Youhave been provided a discharge medications list and you may CONTINUE all home medications as previously prescribed by your regular providers. You have received the listed prescriptions and BEGIN all listed prescriptions as directed. Youhave been provided a discharge medications list. The following CHANGES have been made to your medication list; Otherwise, CONTINUE all home medications as previously prescribed by your regular provider. IMPORTANT: We examined and treated you today on an emergency basis only. This was not a substitute for, or an effort to provide, complete medical care. In most cases, you must let your doctor check youagain. Tell your doctor about any new or lasting problems. We cannot recognize and treat all injuries or illnesses in one Emergency Department visit. If you had special tests, such as EKG's or X- rays, we will review them again within 24 hours. We will call you if there are any new suggestions. Please follow the instructions above carefully. If you are a patient that is being discharged from the Emergency Department after receiving narcotics or other medications that may impair your judgment you may be a risk to yourself or others if you operate a motor vehicle. We recommend that you arrange a ride home with a responsible alliance party. SHERRI Braden NICOLE ANN , or responsible alliance party have received this information and my questions have been answered. I have discussed any challenges I see with this plan with the nurse or physician. Patient Signature or Responsible Constitution Party/Relationship Date/Time Provider Signature Date/Time Medication Reconciliation: Reconciliation is a process of identifying the most accurate list of all medications a patient is taking - including name, dosage, frequency, and route - and using this list to provide to the patient information about how to take those medications. BEE POLANCO or krishna has reviewed the home medications you have listed with us. Review the following instructions: You have NOT received any prescriptions and you have told us you are not currently taking any home medications You have NOT received any prescriptions. You have been provided a discharge medications list and you may CONTINUE taking your medications as previously prescribed by your regular providers. You have received the listed prescriptions and BEGIN all listed prescriptions as directed. Since you have listed no home medications, please check with your family doctor if you are taking any other medications. You have received the listed prescriptions and BEGIN all listed prescriptions as directed. Youhave been provided a discharge medications list and you may CONTINUE all home medications as previously prescribed by your regular providers. You have received the listed prescriptions and BEGIN all listed prescriptions as directed. Youhave been provided a discharge medications list. The following CHANGES have been made to your medication list; Otherwise, CONTINUE all home medications as previously prescribed by your regular provider. IMPORTANT: We examined and treated you today on an emergency basis only. This was not a substitute for, or an effort to provide, complete medical care. In most cases, you must let your doctor check youagain. Tell your doctor about any new or lasting problems. We cannot recognize and treat all injuries or illnesses in one Emergency Department visit. If you had special tests, such as EKG's or X- rays, we will review them again within 24 hours. We will call you if there are any new suggestions. Please follow the instructions above carefully. If you are a patient that is being discharged from the Emergency Department after receiving narcotics or other medications that may impair your judgment you may be a risk to yourself or others if you operate a motor vehicle. We recommend that you arrange a ride home with a responsible alliance party. I, BEE POLANCO , or responsible alliance party have received this information and my questions have been answered. I have discussed any challenges I see with this plan with the nurse or physician. Patient Signature or Responsible Constitution Party/Relationship Date/Time Provider Signature Date/Time Source: [employer] Document Id: [id number] Jorge Ly R.N. - 10/27/2011 11:19 PM CDT ED Depart Summary [facility] Emergency Department / Urgent Care Clinical Discharge Summary PERSON INFORMATION Name BEE POLANCO Age 31 Years 1980 12:00 AM Sex Female Language Croatian PCP JEM SUAREZ MD Marital Status Single Visit Id Visit Reason DIRECT ADMIT Specialty Enc Type Emergency Med Service Emergency Medicine Referred by [facility] ED/UC Discharge Tracking Id [id number] Checkout 10/27/2011 11:19 PM Checkin 10/27/2011 7:21 PM Acuity Dispo Type Admitted as Inpatient to this Hospital Arrival 10/27/2011 7:21 PM Reg Status Complete LOS 000 03:58 Address: [address] [place] [address] Comment: PROVIDER INFORMATION Provider Role Provider Contact Time DIAGNOSIS Comment: PATIENT EDUCATION INFORMATION Instructions: Follow up: [facility] Document Id: [id number] documented in this encounter Progress Notes Batool Matthews O.T. - 10/31/2011 11:19 AM CDT OT Discharge OT Discharge Entered On: 10/31/2011 11:20 CDT Performed On: 10/31/2011 11:19 CDT by BATOOL MATTHEWS OTR Goals Review OT Discharge Status : Patient was consistent with attending OT Life [employer] Sk[employer] group. OT goalsmet. Patient was discharged home. BATOOL MATTHEWS OTR - 10/31/2011 11:19 CDT General Info Pain Symptoms : No BATOOL MATTHEWS OTR - 10/31/2011 11:19 CDT OT Charge Charges - OT : Charges Not Appropriate BATOOL MATTHEWS OTR - 10/31/2011 11:19 CDT [facility] Document Id: [id number] Bassem Diaz M.D. - 10/31/2011 12:00 AM CDT PROGRESS/PROCEDURE NOTE Event Type: PROG Date of : 1980 DICTATED BY: Bassem Diaz MD DATE: 10/31/2011 IMPRESSION/REPORT/PLAN IMPRESSION: Hermann 1: Alcohol dependence. Cannabis dependence. Lorazepam abuse. Substance-induced mood disorder versus mood disorder, not otherwise specified versus major depressive disorder. Anxiety, not otherwise specified. Hermann 2: Antisocial features. Hermann 3: History of self-injurious behaviors. Hermann 4: Severity of psychosocial stressors: Relationship; parenting; unemployment concerns; financial concerns. Hermann 5: Current GAF: 37. PLAN: The patient will be discharged today. CHIEF COMPLAINT/REASON FOR VISIT I met with the patient for supportive counseling. COUNSELING FOCUS: Hospital review in preparation for discharge. PROGRESS IN TREATMENT: The patient would like to be discharged today. CURRENT MEDICATIONS As per JUN. ALLERGIES No known drug allergies. VITAL SIGNS Temperature 36.7, pulse 56, blood pressure 120/65. PHYSICAL EXAMINATION I met with the charge nurse and reviewed the patient's clinical condition. Chart material reviewed. Medication issues reviewed. No side effects reported. Time spent: greater than 30 minutes. MENTAL STATUS EXAMINATION: The patient is dressed in street clothes. She is wearing makeup. She speaks with a soft, but clear voice, has good eye contact. She denies symptoms of psychosis. Denies thoughts of harm to self or others. Mood is mildly anxious. Affect reactive. Gait within normal limits. I did review her relapse and suicide prevention plan with her. ND:kati cc Electronically Signed By: BASSEM DIAZ MD On: 11/03/2011 09:19 AM Source: [facility] [employer] Document Id: [id number] Conversion, Historical Provider Ser - 10/30/2011 2:35 PM CDT clinical staffing note Clinical Staffing Note In attendance: Psychiatrist: Dr. Diaz Psychologist: Dr. Faustin Inpatient Therapist/Radiation Officer: Dr. White Wellness Practitioner: Maty Stratton Occupational Therapist: Maria De Jesus Matthews Nursing: Julia Cortés Diagnosis: major depressive disorder, R/O substance induced mood disorder, R/O anxiety disorder, partner relational conflict, alcohol abuse v. dependence, lorazepam abuse, antisocial personality traits 72Hr hold/Commitment: hold expires 10/31/11 at 1800. Commitment not being filed. Current Status: pt cooperative with treatment and has been attending groups. She reported improvements in mood. Testing Results: MARIO, MAQ, and Microcog completed. See note by Maria De Jesus Faustin. CD Consult: completed with Ortega Andres. Collateral Information: gathered from mother. Family Meeting: completed with mother. Nursing Issues: CIWA, history of self-injurious behaviors Placement Issues: none. Pt plans to return to live with her boyfriend. Relapse Plan: completed Wellness Plan: needs completion Discharge Plans/Appointments: pt would like to attend individual therapy. Anticipated DC Date: 10/31/11 Electronically Signed By: MESHA WHITE PSY.D., LP On: 10/30/2011 02:40 PM Source: [facility] [employer] Document Id: [id number] Migel Stratton - 10/30/2011 1:40 PM CDT WELLNESS PT JOINING IN THE LEARNING AND PRACTICE OF BREATHWORK AND IMAGERY. THE PT STATES THAT SHE HAS NEVEREXPERIENCED IMAGERY A CALMING TECHNIQUE BUT SHE DID FIND IT VERY HELPFUL THIS MORNING AND LEFT HER FEELING VERY RELAXED. Electronically Signed By: MIGEL STRATTON On: 10/30/2011 01:42 PM Source: [employer] Document Id: [id number] Batool Matthews O.T. - 10/30/2011 1:09 PM CDT OT Daily Note OT Daily Note Entered On: 10/30/2011 13:12 CDT Performed On: 10/30/2011 13:09 CDT by BATOOL MATTHEWS OTR General Info Pain Symptoms : No BATOOL MATTHEWS OTR - 10/30/2011 13:09 CDT Treatment OT Psychosocial Intervention : Yes OT Group Therapy Charge : Yes OT Total Treatment Time : 50minute(s) OT Treatment Response : Patient scored 58/120 on self image inventory indicating poor self image. BATOOL MATTHEWS OTR - 10/30/2011 13:09 CDT OT Psychosocial Intervention Information Exchange : Engages, Shares Relations : Focuses Affect : Full range Physicality : Contacts Mood : Normal (Euthymic) Thought Process : Logical BATOOL MATTHEWS OTR - 10/30/2011 13:09 CDT Group Therapy Performance : Able to focus on issues, Independent in task, Puts forth effort, Reflective Response to Feeback : Accepting, Shows change Group Therapy Activities : Topic: Self Esteem Patient's Daily Goals : Goals: learn to identify self critic images which damage self esteem and techniques to improve self esteem. BATOOL MATTHEWS OTR - 10/30/2011 13:09 CDT OT Charge OT Number of Patient Visits : 1 Charges - OT : Charges Complete OT Visit, Inpatient : Yes OT Behavioral Health Group Minutes : 50 OT Behavioral Health Group Charge : Yes BATOOL MATTHEWS OTR - 10/30/2011 13:09 CDT Source: [employer] Document Id: [id number] Bassem Diaz M.D. - 10/30/2011 12:00 AM CDT PROGRESS/PROCEDURE NOTE Event Type: PROG Date of : 1980 DICTATED BY: Bassem Diaz MD DATE: 10/30/2011 IMPRESSION/REPORT/PLAN Hermann 1: Major depression. Anxiety disorder, not otherwise specified. Partner relational problem. Alcohol abuse versus dependence. Cannabis abuse. Lorazepam abuse by history. Hermann 2: Antisocial features. Hermann 3: History of self-injurious behaviors. PLAN: C4 SP. Follow treatment plan. HISTORY OF PRESENT ILLNESS I met with the patient for supportive counseling. COUNSELING FOCUS: CBT was provided. PROGRESS IN TREATMENT: The patient is looking forward to going home tomorrow. CURRENT MEDICATIONS As per JUN. ALLERGIES No known drug allergies. VITAL SIGNS Temperature 36.3, pulse 69, blood pressure 114/68. I met with the charge nurse and reviewed the patient's clinical condition. Chart material reviewed. Medication issues reviewed. Time spent 25 minutes, more than 50% of which was spent in counseling or coordination of care. I met with the treatment team and reviewed the patient's clinical condition. PHYSICAL EXAMINATION MENTAL STATUS EXAMINATION: The patient is dressed in casual clothing. She is neatly groomed, alert, appears to be less anxious than yesterday. She did report night sweats and concerns regarding her followup. She indicates she would like to pursue psychotherapy as she believes it has been helpful for her. I did review with patient the concerns regarding night sweats. It as a potential side effect of Paxil. Medication and it was mutually decided to reduce her dose from 40 mg to 30 mg and monitor this with her outpatient prescribing provider to see if this would provide some relief for her condition with. Option to reduce it further should be considered only after discussion with her outpatient provider prescriber. ND:sandy cc Electronically Signed By: BASSEM DIAZ MD On: 11/03/2011 09:20 AM Source: [facility] Document Id: [id number] Conversion,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 Prescribed Antiepileptics Hendrich : No Prescribed Benzodiazepines Hendrich : No Rising From Chair Fall Risk Hendrich : Able to rise in a single movement, no loss of balance with steps Fall Risk Score Hendrich II : 0 MARNIE QURESHI RN - 10/30/2011 17:33 CDT Education General Patient Education Powergrid Topics : Other: Take 5 MARNIE QURESHI RN - 10/30/2011 17:33 CDT Source: [facility] POWERCHART Document Id: [id number] Miscellaneous - Laquita Funk R.N. - 10/30/2011 8:46 AM CDT Adult Activities of Daily Living Adult Activities of Daily Living Entered On: 10/30/2011 11:57 CDT Performed On: 10/30/2011 8:46 CDT by LAQUITA FUNK RN ADLs I Activity Status ADL : Up ad nidia Activity Assistance : Independent Assistive Device : None LAQUITA FUNK RN - 10/30/2011 8:46 CDT ADLs II Hygiene Assistance Grid Shower : Independent LAQUITA FUNK RN - 10/30/2011 11:59 CDT Standard Safety : ID band check, Non-Slip footwear, Rounds every 1 hour, Other: Take 5 LAQUITA FUNK RN - 10/30/2011 8:46 CDT ADLs Adult Nutrition Lunch : 100% LAQUITA FUNK RN - 10/30/2011 11:57 CDT Feeding Assistance : Independent Breakfast : 100% LAQUITA FUNK RN - 10/30/2011 8:46 CDT Source: [employer] Document Id: [id number] Miscellaneous - Laquita Funk R.N. - 10/30/2011 8:41 AM CDT Adult Ongoing Assessment Adult Ongoing Assessment Entered On: 10/30/2011 8:46 CDT Performed On: 10/30/2011 8:41 CDT by LAQUITA FUNK RN Psycho/Emotional Affect/Behavior : Cooperative, Anxious Pain Symptoms : No Feels Rested : No LAQUITA FUNK RN - 10/30/2011 8:41 CDT Coping Grid Identifies effective strategies : Yes Uses effective strategies : Yes Reports increase in psychological comfort : Yes Indicates sense of control : Yes Stressors perceived within control : No Stable mood with appropriate affect : Yes Behaviors indicate use of coping mechanism : Yes Family supportive and involved in care : Yes Values/Beliefs incorporated appropriately : Yes LAQUITA FUNK RN - 10/30/2011 8:41 CDT Safety Grid Vision, Hearing, Mobility Adequate to Meet Safety Needs : Yes LAQUITA FUNK RN - 10/30/2011 8:41 CDT Psycho/Emotional Detailed Assessment : Yes LAQUITA FUNK RN - 10/30/2011 8:41 CDT Psycho/Emotional Detailed Hallucinations Present : None Orientation : Oriented x 3 Participates in Age-specific Activities : Yes Cognition : Motivated for treatment, Cooperative with 1:1 Behavior & General Appearance : Social with peers and staff, interacts appropriately, ADLs self-initiated Behavior/Interaction with Peers/Staff Appropriate : Yes Memory : Short term memory intact Thought Process Intact : Yes LAQUITA FUNK RN - 10/30/2011 8:41 CDT Suicide Risk Re-Assessment Ongoing Behaviors/Threats of Harm to Self : No Behaviors/Threats of Harm to Others : No Do you have a plan for suicide? : No LAQUITA FUNK RN - 10/30/2011 8:41 CDT Stepan Sensory Perception Stepan : No impairment Moisture Stepan : Rarely moist Activity Stepan : Walks frequently Mobility Stepan : No limitations Nutrition Stepan : Excellent Friction and Shear Stepan : No apparent problem Stepan Score : 23 LAQUITA FUNK RN - 10/30/2011 8:41 CDT Hendrich II Fall Risk Confusion/Disorientation Hendrich : No Depression Fall Risk Hendrich : Yes Altered Elimination Fall Risk Hendrich : No Dizziness/Vertigo Fall Risk Hendrich : No Gender, Male Fall Risk Hendrich : No Prescribed Antiepileptics Hendrich : No Prescribed Benzodiazepines Hendrich : No Rising From Chair Fall Risk Hendrich : Able to rise in a single movement, no loss of balance with steps Fall Risk Score Hendrich II : 2 LAQUITA FUNK RN - 10/30/2011 8:41 CDT Education General Patient Education Powergrid Topics : Other: Take 5 (Comment: Reviewed plan of care with patient for this shift. [GAGANDEEP FUNK RN - 10/30/2011 8:41 CDT] ) Individuals Taught : Patient Barriers to Learning : None evident Teaching Method : Explanation Teaching Evaluation : Verbalizes understanding LAQUITA FUNK RN - 10/30/2011 8:41 CDT [facility] Document Id: [id number] Miscellaneous - Amelia Liu R.N. - 10/30/2011 3:25 AM CDT Adult Ongoing Assessment Adult Ongoing Assessment Entered On: 10/30/2011 3:26 CDT Performed On: 10/30/2011 3:25 CDT by AMELIA SMITH RN Psycho/Emotional Psycho/Emotional Detailed Assessment : Yes AMELIA MSITH RN - 10/30/2011 5:33 CDT Affect/Behavior : Calm, Cooperative, Other: sleeping Pain Symptoms : No AMELIA SMITH RN - 10/30/2011 3:25 CDT Safety Grid Vision, Hearing, Mobility Adequate to Meet Safety Needs : Yes AMELIA SMITH RN - 10/30/2011 3:25 CDT Psycho/Emotional Detailed Sleep Assessment : Slept well 6 or more consecutive hours Hours of sleep, uninterrupted : 7 AMELIA SMITH RN - 10/30/2011 5:33 CDT Hendrich II Fall Risk Confusion/Disorientation Hendrich : No Depression Fall Risk Hendrich : No Altered Elimination Fall Risk Hendrich : No Dizziness/Vertigo Fall Risk Hendrich : No Gender, Male Fall Risk Hendrich : No Prescribed Antiepileptics Hendrich : No Prescribed Benzodiazepines Hendrich : No Rising From Chair Fall Risk Hendrich : Able to rise in a single movement, no loss of balance with steps Fall Risk Score Hendrich II : 0 AMELIA SMITH RN - 10/30/2011 3:25 CDT Source: [employer] Document Id: [id number] Miscellaneous - Amelia Liu R.N. - 10/30/2011 3:25 AM CDT Adult Activities of Daily Living Adult Activities of Daily Living Entered On: 10/30/2011 3:26 CDT Performed On: 10/30/2011 3:25 CDT by AMELIA SMITH RN ADLs I Activity Status ADL : Up ad nidia, Other: sleeping Activity Assistance : Independent Assistive Device : None AMELIA SMITH RN - 10/30/2011 3:25 CDT ADLs II Standard Safety : Bed in low position, ID band check, Non-Slip footwear, Rounds every 1 hour AMELIA SMITH RN - 10/30/2011 3:25 CDT ADLs Adult Nutrition Feeding Assistance : Independent AMELIA SMITH RN - 10/30/2011 3:25 CDT Source: [facility] POWERCHART Document Id: [id number] Miscellaneous - Laquita Funk R.N. - 10/29/2011 5:11 PM CDT Adult Ongoing Assessment Adult Ongoing Assessment Entered On: 10/29/2011 17:13 CDT Performed On: 10/29/2011 17:11 CDT by LAQUITA FUNK RN Psycho/Emotional Affect/Behavior : Cooperative, Appropriate Pain Symptoms : No Feels Rested : Yes LAQUITA FUNK RN - 10/29/2011 17:11 CDT Coping Grid Identifies effective strategies : Yes Uses effective strategies : Yes Reports increase in psychological comfort : Yes Indicates sense of control : Yes Stressors perceived within control : No Stable mood with appropriate affect : Yes Behaviors indicate use of coping mechanism : Yes Family supportive and involved in care : Yes Values/Beliefs incorporated appropriately : Yes LAQUITA FUNK RN - 10/29/2011 17:11 CDT Safety Grid Vision, Hearing, Mobility Adequate to Meet Safety Needs : Yes LAQUITA FUNK RN - 10/29/2011 17:11 CDT Psycho/Emotional Detailed Assessment : Yes LAQUITA FUNK RN - 10/29/2011 17:11 CDT Psycho/Emotional Detailed Hallucinations Present : None Orientation : Oriented x 3 Participates in Age-specific Activities : Yes Cognition : Motivated for treatment, Cooperative with 1:1 Behavior & General Appearance : Social with peers and staff, interacts appropriately, ADLs self-initiated Behavior/Interaction with Peers/Staff Appropriate : Yes Memory : Short term memory intact Thought Process Intact : Yes LAQUITA FUNK RN - 10/29/2011 17:11 CDT Suicide Risk Re-Assessment Ongoing Behaviors/Threats of Harm to Self : No Behaviors/Threats of Harm to Others : No Do you have a plan for suicide? : No LAQUITA FUNK RN - 10/29/2011 17:11 CDT Stepan Sensory Perception Stepan : No impairment Moisture Stepan : Rarely moist Activity Stepan : Walks frequently Mobility Stepan : No limitations Nutrition Stepan : Excellent Friction and Shear Stepan : No apparent problem Stepan Score : 23 LAQUITA FUNK RN - 10/29/2011 17:11 CDT Hendrich II Fall Risk Confusion/Disorientation Hendrich : No Depression Fall Risk Hendrich : Yes Altered Elimination Fall Risk Hendrich : No Dizziness/Vertigo Fall Risk Hendrich : No Gender, Male Fall Risk Hendrich : No Prescribed Antiepileptics Hendrich : No Prescribed Benzodiazepines Hendrich : No Rising From Chair Fall Risk Hendrich : Able to rise in a single movement, no loss of balance with steps Fall Risk Score Hendrich II : 2 LAQUITA FUNK RN - 10/29/2011 17:11 CDT Education General Patient Education Powergrid Topics : Other: Take 5 (Comment: Reviewed plan of care with patient for remainder of shift. [LAQUITA FUNK RN - 10/29/2011 17:11 CDT] ) Individuals Taught : Patient Barriers to Learning : None evident Teaching Method : Explanation Teaching Evaluation : Verbalizes understanding LAQUITA FUNK RN - 10/29/2011 17:11 CDT Source: [employer] Document Id: [id number] Miscellaneous - Laquita Funk R.N. - 10/29/2011 10:13 AM CDT Adult Ongoing Assessment Adult Ongoing Assessment Entered On: 10/29/2011 10:15 CDT Performed On: 10/29/2011 10:13 CDT by LAQUITA FUNK RN Psycho/Emotional Affect/Behavior : Cooperative, Anxious Pain Symptoms : No Feels Rested : Yes LAQUITA FUNK RN - 10/29/2011 10:13 CDT Coping Grid Identifies effective strategies : Yes Uses effective strategies : Yes Reports increase in psychological comfort : Yes Indicates sense of control : Yes Stressors perceived within control : No Stable mood with appropriate affect : Yes Behaviors indicate use of coping mechanism : Yes Values/Beliefs incorporated appropriately : Yes LAQUITA FUNK RN - 10/29/2011 10:13 CDT Safety Grid Vision, Hearing, Mobility Adequate to Meet Safety Needs : Yes LAQUITA FUNK RN - 10/29/2011 10:13 CDT Psycho/Emotional Detailed Assessment : Yes LAQUITA FUNK RN - 10/29/2011 10:13 CDT Psycho/Emotional Detailed Hallucinations Present : None Orientation : Oriented x 3 Participates in Age-specific Activities : Yes Cognition : Motivated for treatment, Cooperative with 1:1 Behavior & General Appearance : Social with peers and staff, interacts appropriately, ADLs self-initiated Behavior/Interaction with Peers/Staff Appropriate : Yes Memory : Short term memory intact Thought Process Intact : Yes LAQUITA FUNK RN - 10/29/2011 10:13 CDT Suicide Risk Re-Assessment Ongoing Behaviors/Threats of Harm to Self : No Behaviors/Threats of Harm to Others : No Do you have a plan for suicide? : No LAQUITA FUNK RN - 10/29/2011 10:13 CDT Stepan Sensory Perception Stepan : No impairment Moisture Stepan : Rarely moist Activity Stepan : Walks frequently Mobility Stepan : No limitations Nutrition Stepan : Excellent Friction and Shear Stepan : No apparent problem Stepan Score : 23 LAQUITA FUNK RN - 10/29/2011 10:13 CDT Hendrich II Fall Risk Confusion/Disorientation Hendrich : No Depression Fall Risk Hendrich : Yes Altered Elimination Fall Risk Hendrich : No Dizziness/Vertigo Fall Risk Hendrich : No Gender, Male Fall Risk Hendrich : No Prescribed Antiepileptics Hendrich : No Prescribed Benzodiazepines Hendrich : No Rising From Chair Fall Risk Hendrich : Able to rise in a single movement, no loss of balance with steps Fall Risk Score Hendrich II : 2 LAQUITA FUNK RN - 10/29/2011 10:13 CDT Education General Patient Education Powergrid Topics : Other: Take 5 (Comment: Reviewed plan of care with patient. [LAQUITA FUNK RN - 10/29/2011 10:13 CDT] ) Individuals Taught : Patient Barriers to Learning : None evident Teaching Method : Explanation Teaching Evaluation : Verbalizes understanding LAQUITA FUNK RN - 10/29/2011 10:13 CDT [facility] P[facility] Document Id: [id number] Miscellaneous - Laquita Funk R.N. - 10/29/2011 10:13 AM CDT Adult Activities of Daily Living Adult Activities of Daily Living Entered On: 10/29/2011 10:13 CDT Performed On: 10/29/2011 10:13 CDT by LAQUITA FUNK RN ADLs I Activity Status ADL : Up ad nidia Activity Assistance : Independent LAQUITA FUNK RN - 10/29/2011 10:13 CDT ADLs II Hygiene Assistance Grid Shower : Independent LAQUITA FUNK RN - 10/29/2011 10:13 CDT Standard Safety : ID band check, Non-Slip footwear, Other: 15 minute safety checks: see rounding sheet LAQUITA FUNK RN - 10/29/2011 10:13 CDT ADLs Adult Nutrition Lunch : 100% Dinner : 100% LAQUITA FUNK RN - 10/29/2011 18:39 CDT Feeding Assistance : Independent Breakfast : 100% LAQUITA FUNK RN - 10/29/2011 10:13 CDT Source: [employer] Document Id: [id number] Miscellaneous - Ariel Sutherland RKallie - 10/29/2011 12:05 AM CDT Adult Ongoing Assessment Adult Ongoing Assessment Entered On: 10/29/2011 0:06 CDT Performed On: 10/29/2011 0:05 CDT by ARIEL SUTHERLAND RN Psycho/Emotional Affect/Behavior : Other: RESTING/SLEEPING Pain Symptoms : No Psycho/Emotional Detailed Assessment : Yes ARIEL SUTHERLAND RN - 10/29/2011 0:05 CDT Hendrich II Fall Risk Confusion/Disorientation Hendrich : No Depression Fall Risk Hendrich : No Altered Elimination Fall Risk Hendrich : No Dizziness/Vertigo Fall Risk Hendrich : No Gender, Male Fall Risk Hendrich : No Prescribed Antiepileptics Hendrich : No Prescribed Benzodiazepines Hendrich : No Rising From Chair Fall Risk Hendrich : Able to rise in a single movement, no loss of balance with steps Fall Risk Score Hendrich II : 0 ARIEL SUTHERLAND RN - 10/29/2011 0:05 CDT Source: [employer] Document Id: [id number] Cheikh - Ariel Sutherland R.N. - 10/29/2011 12:04 AM CDT Adult Activities of Daily Living Adult Activities of Daily Living Entered On: 10/29/2011 0:05 CDT Performed On: 10/29/2011 0:04 CDT by ARIEL SUTHERLAND RN ADLs I Activity Status ADL : Up ad nidia Activity Assistance : Independent Assistive Device : None ARIEL SUTHERLAND RN - 10/29/2011 0:04 CDT ADLs II Standard Safety : ID band check, Rounds every 1 hour ARIEL SUTHERLAND RN - 10/29/2011 0:04 CDT ADLs Adult Nutrition Feeding Assistance : Independent ARIEL SUTHERLAND RN - 10/29/2011 0:04 CDT Source: [employer] Document Id: [id number] Cheikh - Linda Yadav R.N. - 10/28/2011 9:19 PM CDT Adult Ongoing Assessment Adult Ongoing Assessment Entered On: 10/28/2011 21:21 CDT Performed On: 10/28/2011 21:19 CDT by LINDA YADAV RN Psycho/Emotional Affect/Behavior : Cooperative, Appropriate, Anxious, Restless Pain Symptoms : No LINDA YADAV RN - 10/28/2011 21:19 CDT Coping Grid Identifies effective strategies : No Uses effective strategies : No Reports increase in psychological comfort : Yes Indicates sense of control : Yes Stressors perceived within control : Yes Stable mood with appropriate affect : Yes Behaviors indicate use of coping mechanism : Yes Family supportive and involved in care : Yes Values/Beliefs incorporated appropriately : Yes LINDA YADAV RN - 10/28/2011 21:19 CDT Safety Grid Vision, Hearing, Mobility Adequate to Meet Safety Needs : Yes LINDA YADAV RN - 10/28/2011 21:19 CDT Psycho/Emotional Detailed Assessment : Yes LINDA YADAV RN - 10/28/2011 21:19 CDT Psycho/Emotional Detailed Hallucinations Present : None Orientation : Oriented x 3 Participates in Age-specific Activities : Yes Cognition : Adequate concentration, Judgement appropriate, Motivated for treatment, Cooperative with1:1 Behavior & General Appearance : Appropriate for situation, Social with peers and staff, interacts appropriately, ADLs self-initiated Behavior/Interaction with Peers/Staff Appropriate : Yes Thought Process Intact : Yes LINDA YADAV RN - 10/28/2011 21:19 CDT Suicide Risk Re-Assessment Ongoing Behaviors/Threats of Harm to Self : No Behaviors/Threats of Harm to Others : No Do you have a plan for suicide? : No LINDA YADAV RN - 10/28/2011 21:19 CDT Nutrition Eating Difficulties : None Appetite : Good Nutrition Risk Factors by History Adult : None LINDA YADAV RN - 10/28/2011 21:19 CDT Hendrich II Fall Risk Confusion/Disorientation Hendrich : No Depression Fall Risk Hendrich : No Altered Elimination Fall Risk Hendrich : No Dizziness/Vertigo Fall Risk Hendrich : No Gender, Male Fall Risk Hendrich : No Prescribed Antiepileptics Hendrich : No Prescribed Benzodiazepines Hendrich : No Rising From Chair Fall Risk Hendrich : Able to rise in a single movement, no loss of balance with steps Fall Risk Score Hendrich II : 0 LINDA YADAV RN - 10/28/2011 21:19 CDT Education General Patient Education Powergrid Topics : Plan of care, Unit procedures, Other: Take 5 Individuals Taught : Patient Barriers to Learning : None evident Teaching Method : Explanation Teaching Evaluation : Verbalizes understanding LIDNA YADAV RN - 10/28/2011 21:19 CDT Source: [facility] POWERCHART Document Id: [id number] Miscellaneous - Linda Yadav, R.N. - 10/28/2011 9:18 PM CDT Adult Activities of Daily Living Adult Activities of Daily Living Entered On: 10/28/2011 21:18 CDT Performed On: 10/28/2011 21:18 CDT by LINDA YADAV RN ADLs I Activity Status ADL : Up ad nidia Activity Assistance : Independent Assistive Device : None LINDA YADAV RN - 10/28/2011 21:18 CDT ADLs II Hygiene Assistance Grid Hair Care : Independent Oral Care : Independent Alma Care : Independent LINDA YDAAV RN - 10/28/2011 21:18 CDT Serrano Catheter Care Done : No Elimination Assistance Offered Q2H : Independent Standard Safety : Bed in low position, ID band check, Non-Slip footwear, Other: C3SP LINDA YADAV RN - 10/28/2011 21:18 CDT ADLs Adult Nutrition Feeding Assistance : Independent Dinner : 100% Evening Snack : 100% LINDA YADAV RN - 10/28/2011 21:18 CDT Source: [employer] Document Id: [id number] Miscellaneous - Magnolia Han RJoannaNJoanna - 10/28/2011 2:32 PM CDT Adult Ongoing Assessment Adult Ongoing Assessment Entered On: 10/28/2011 14:34 CDT Performed On: 10/28/2011 14:32 CDT by MAGNOLIA HAN RN Neurological Neuro Patient Stated Symptoms : None Orientation : Oriented x 3 Level of Consciousness : Alert Gait : Steady Last Well Time Known : Not applicable MAGNOLIA HAN RN - 10/28/2011 14:32 CDT Psycho/Emotional Affect/Behavior : Cooperative, Appropriate Pain Symptoms : No Feels Rested : No MAGNOLIA HAN RN - 10/28/2011 14:32 CDT Coping Grid Identifies effective strategies : No Uses effective strategies : No (Comment: Withdrawn [MAGNOLIA HAN RN - 10/28/2011 14:32 CDT] ) Reports increase in psychological comfort : No Indicates sense of control : Yes Stressors perceived within control : Yes Stable mood with appropriate affect : No Behaviors indicate use of coping mechanism : Yes Family supportive and involved in care : Yes Values/Beliefs incorporated appropriately : Yes MAGNOLIA HAN RN - 10/28/2011 14:32 CDT Safety Grid Vision, Hearing, Mobility Adequate to Meet Safety Needs : Yes MAGNOLIA HAN RN - 10/28/2011 14:32 CDT Psycho/Emotional Detailed Assessment : Yes BENY HANGutierrez Quan RN - 10/28/2011 14:32 CDT Psycho/Emotional Detailed Hallucinations Present : None Orientation : Oriented x 3 Participates in Age-specific Activities : Yes Cognition : Cooperative with 1:1 Behavior & General Appearance : Appropriate for situation, Social with peers and staff, interacts appropriately, ADLs self-initiated Behavior/Interaction with Peers/Staff Appropriate : Yes Thought Process Intact : Yes ALLYNSERGIOCHIKI Quan RN - 10/28/2011 14:32 CDT Suicide Risk Re-Assessment Ongoing Behaviors/Threats of Harm to Self : No Behaviors/Threats of Harm to Others : No Do you have a plan for suicide? : No RHONDAOMAYRASERGIOCHIKI Quan RN - 10/28/2011 14:32 CDT Nutrition Eating Difficulties : None Appetite : Good RHONDAOMAYRASERGIOCHIKI Quan RN - 10/28/2011 14:32 CDT Stepan Sensory Perception Stepan : No impairment Moisture Stepan : Rarely moist Activity Stepan : Walks frequently Mobility Stepan : No limitations Nutrition Stepan : Adequate Friction and Shear Stepan : No apparent problem Stepan Score : 22 SERGIO HANCHIKI Quan RN - 10/28/2011 14:32 CDT Hendrich II Fall Risk Confusion/Disorientation Hendrich : No Depression Fall Risk Hendrich : No Altered Elimination Fall Risk Hendrich : No Dizziness/Vertigo Fall Risk Hendrich : No Gender, Male Fall Risk Hendrich : No Prescribed Antiepileptics Hendrich : No Prescribed Benzodiazepines Hendrich : No Rising From Chair Fall Risk Hendrich : Pushes up, successful in one attempt Fall Risk Score Hendrich II : 1 RHONDAOMAYRASERGIOCHIKI Quan RN - 10/28/2011 14:32 CDT Education General Patient Education Powergrid Topics : Plan of care, Other: Take 5 Individuals Taught : Patient Teaching Evaluation : Verbalizes understanding MAGNOLIA HAN RN - 10/28/2011 14:32 CDT Source: [facility] POWERCHART Document Id: [id number] Miscellaneous - Magnolia Han R.N. - 10/28/2011 10:24 AM CDT Adult Activities of Daily Living Adult Activities of Daily Living Entered On: 10/28/2011 10:24 CDT Performed On: 10/28/2011 10:24 CDT by MAGNOLIA HAN RN ADLs I Activity Status ADL : Up ad nidia Activity Assistance : Independent Assistive Device : None Ambulation Patient Effort : Good MAGNOLIA HAN RN - 10/28/2011 10:24 CDT ADLs II Elimination Assistance Offered Q2H : Independent Standard Safety : ID band check, Non-Slip footwear, Other: Rounds every 15 minutes MAGNOLIA HAN RN - 10/28/2011 10:24 CDT ADLs Adult Nutrition Breakfast : 100% Lunch : 100% MAGNOLIA HAN RN - 10/28/2011 15:09 CDT Feeding Assistance : Independent MAGNOLIA HAN RN - 10/28/2011 10:24 CDT Source: [employer] Document Id: [id number] Miscellaneous - Janet Suero RJoannaNJoanna - 10/28/2011 4:58 AM CDT Adult Ongoing Assessment Adult Ongoing Assessment Entered On: 10/28/2011 4:59 CDT Performed On: 10/28/2011 4:58 CDT by JANET SUERO RN Respiratory Respiratory Patient Stated Symptoms : None Respirations : Unlabored JANET SUERO RN - 10/28/2011 4:58 CDT Psycho/Emotional Pain Symptoms : No ARIEL SUTHERLAND RN - 10/29/2011 0:05 CDT Affect/Behavior : Other: asleep Psycho/Emotional Detailed Assessment : Yes JANET SUERO RN - 10/28/2011 4:58 CDT Psycho/Emotional Detailed Sleep Assessment : Slept fairly well 4-6 consecutive hours Hours of sleep, uninterrupted : 5 JANET SUERO RN - 10/28/2011 4:58 CDT Source: [employer] Document Id: [id number] Cheikh - Janet Suero R.N. - 10/28/2011 1:29 AM CDT Adult Activities of Daily Living Adult Activities of Daily Living Entered On: 10/28/2011 1:30 CDT Performed On: 10/28/2011 1:29 CDT by JANET SUERO RN ADLs I Activity Status ADL : Up ad nidia Activity Assistance : Independent JANET SUERO RN - 10/28/2011 1:29 CDT ADLs II Standard Safety : Bed in low position, ID band check, Non-Slip footwear, Other: c3SP JANET SUERO RN - 10/28/2011 1:29 CDT Source: [facility] POWERCHART Document Id: [id number] Cheikh - Janet Suero R.N. - 10/28/2011 12:54 AM CDT Basic Admission Information Basic Admission Information Entered On: 10/28/2011 0:56 CDT Performed On: 10/28/2011 0:54 CDT by JANET SUERO RN Vital Signs Temperature Core : 36.9C(Converted to: 98.4DegF) Peripheral Pulse Rate : 54/min (LOW) Systolic Blood Pressure : 109mmHg Diastolic Blood Pressure : 69mmHg NIBP Mean : 82mmHg Height : 167cm(Converted to: 5ft 6inch(es)) Height Source : Estimated Estimated Weight : 54kg Estimated Weight Conversion to Pounds : 118.80lb JANET SUERO RN - 10/28/2011 0:54 CDT Allergy Rule Valuables/Belongings Valuables/Belongings Grid Valuables Sent to Secured Storage Clothes, Patient Valuables : Other: see belongings sheet (Comment: at nurse's station [JANET SUERO RN - 10/28/2011 0:54 CDT] ) JANET SUERO RN - 10/28/2011 0:54 CDT Room Orientation/Facility Policy Reviewed : Yes Home Medication Disposition : None brought in with patient JANET SUERO RN - 10/28/2011 0:54 CDT Source: [facility] POWERCHART Document Id: [id number] Miscellaneous - Janet Suero R.N. - 10/28/2011 12:52 AM CDT Adult Admission Assessment Adult Admission Assessment Entered On: 10/28/2011 0:54 CDT Performed On: 10/28/2011 0:52 CDT by JANET SUERO RN Respiratory Respiratory Patient Stated Symptoms : None Respirations : Unlabored Cough : None JANET SUERO RN - 10/28/2011 0:52 CDT Cardiovascular CV Patient Stated Symptoms : None Heart Rhythm : Regular Skin Color : Normal for ethnicity Skin Description : Normal Skin Temperature : Warm Activity Tolerance : Without distress JANET SUERO RN - 10/28/2011 0:52 CDT Neurological Neuro Patient Stated Symptoms : None Orientation : Oriented x 3, Appropriate for age, Identifies self Level of Consciousness : Alert, Other: getting sleepy Swallowing Difficulty/Aspiration Risk : None JANET SUERO RN - 10/28/2011 0:52 CDT Psycho/Emotional Pain Symptoms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
[2022-02-10 20:22] LABS: HCG Qualitative Serum* Negative (Negative)
== END 2022-02-10 20:40 | disposition home or self-care (01) ==
LOC: ED 19:49
PROVIDERS: Emergency Provider Family Medicine; PCP Family Medicine
DX: S83.005A Unspecified dislocation of left patella, initial encounter (principal); W19.XXXA Unspecified fall, initial encounter; F10.129 Alcohol abuse with intoxication, unspecified
CPT/HCPCS: 27562; 36415; 73560; 80048; 80076; 82077; 84703; 85025; 94761; 96374; 96375; 99284; J1170; J2250; J2405; J7030

== ENCOUNTER 2022-03-03 12:50 | Outpatient (CLI) | payer MEDICAID, SELFPAY ==
--- OUTSIDE RECORDS SUMMARY | 2022-03-03 12:57 | XMS_ITS | Clinical Summary ---
:1980 Author Organization [facility] Address [address] [place] [address] Care Team Providers Name Role Phone Elsewhere, Pcp Primary Care Provider Unavailable Source Comments Patient records contain information from all sites at [facility]. For routine questions regarding patient records, call [phone] during business hours, M-F 8:00 AM - 5:00 PM Central Time. Record requests for emergency care only can be directed to [phone] at any time.[facility] Social History Tobacco Use Types Packs/Day Years [...] / Group Dates BLUE CROSS BCBS BLUE [id number] 2020-Pres ATTN: Radha martinez HMO BLUE SHIELD PLUS HMO ent CONSUMER [facility] [address] [address] [place] [address] Care Teams Repair Department Manager Relationship Specialty Start Date End Date Elsewhere, Pcp PCP - General 06/14/18
--- OUTSIDE RECORDS SUMMARY | 2022-03-03 12:57 | XMS_ITS | Encounter Summary ---
:1980 Author Organization [facility] Address [address] [place] [address] Care Team Providers Name Role Phone Elsewhere, Pcp Primary Care Provider Unavailable Encounter Details Date Type Department Care Team Description 02/21/2021 Orders Only [facility] PCP TH Sa kari Damian M.D. [address] [place], [place] [phone] (Wo rk) Social History Tobacco Use Types Packs/Day Years Used Date Smoking Tobacco: Every Day Sex Assigned at Date Recorded Not on file documented as of this encounter Plan of Treatment Not on filedocumented as of this encounter Visit Diagnoses Not on filedocumented in this encounter Care Teams Engineering And Operations Director Relationship Specialty Start Date End Date Elsewhere, Pcp PCP - General 06/14/18 documented as of this encounter
--- OUTSIDE RECORDS SUMMARY | 2022-03-03 12:58 | XMS_ITS | Encounter Summary ---
:1980 Author Organization [facility] Address [address] [place] [address] Care Team Providers Name Role Phone Elsewhere, Pcp Primary Care Provider Unavailable Reason for Visit Reason Comments Drug Screen [facility] Encounter Details Date Type Department Care Team Description 06/22/2019 Clinical Support Department of Mayuri Tuttle Drug Scre en (Primary Occupational Medicine Duy Garcia, M .P.H. Dx) in [facility] [address] [facility] [address] [place] [phone] Social History Tobacco Use Types Packs/Day Years Used Date Smoking Tobacco: Every Day Sex Assigned at Date Recorded Not on file documented as of this encounter Progress Notes Radha Walker, LJoannaP.N. - 06/22/2019 9:00 AM CDT Pre employment rapid uds completed for [facility]. Uneventful collection. documented in this encounter Plan of Treatment Scheduled Orders Name Type Priority Associated Diagnoses Order S chedule [facility] Drug screening Procedures Routine Drug Screen Ordered: 06/22/2019 documented as of this encounter Visit Diagnoses Diagnosis Drug Screen - Primary documented in this encounter Care Teams Home Office Claim Specialist Relationship Specialty Start Date End Date Elsewhere, Pcp PCP - General 06/14/18 documented as of this encounter
--- OUTSIDE RECORDS SUMMARY | 2022-03-03 12:58 | XMS_ITS | Encounter Summary ---
:1980 Author Organization [facility] Address [address] [place] [address] Care Team Providers Name Role Phone Unavailable Primary Care Provider Unavailable Encounter Details Date Type Department Care Team Description 10/27/2011 - Hospital Encounter HX [facility] PSYCH JoeBassem Gregg, 10/31/2011 M.D. [address] [place] [id number] Social History Tobacco Use Types Packs/Day Years [...] 10/31/2011 8:20 AM CDT Discharge Medication List [facility] [address] [place] [address] Discharge Medication List Name: BEE POLANCO Current Date: 10/31/2011 08:20:38 : 1980 12:00 AM Patient Address: [address] [facility] [address] Patient Primary Care Provider: Name: JEM SUAREZ MD Phone: Discharge Diagnosis: Major Depressive Disorder, Recurrent Episode, in Partial or Unspecified Remission [facility] in [place] would like to thank you for allowing [...] BASSEM DIAZ MD Signed On:31-OCT-2011 08:11:15 [facility] Document Id: [id number] Laquita Funk R.N. - 10/31/2011 8:20 AM CDT Inpatient Discharge Instructions [facility] [address] [place] [address] Patient Discharge Instructions Name: BEE POLANCO Current Date: 10/31/2011 08:20:35 : 1980 12:00 AM Patient Address: [address] [place], [place] [id number] Patient Primary Care Provider: Name: JEM SUAREZ MD Phone: Discharge Diagnosis: Major Depressive Disorder, Recurrent Episode, in Partial or Unspecified Remission [facility] in [place] would like to thank you for allowing us to assist you with your healthcare needs. The following includes patient education materials and information regarding your injury/illness. Comment: BEE POLANCO has been given the following list of follow-up instructions, prescriptions, and patient education materials: Follow-up Instructions With: Address: When: Dr. Suarez [facility], [address] [place] [address] 11/05/2011 02:20:00 Comments: Primary Care provider I, BEE POLANCO , have received the attached patient education materials/instructions and have verbalized understanding: Patient Signature Date/Time Provider Signature Date/Time 99988 Depression: Tips to Help Yourself As your [...] when you can. Go to a movie, Hire Junglegame, mandaeism service, or social event. Talk openly with [...] diet helps keep your body healthy. ?? [phone] [employer], [address] [place] [address], [place] [address]. All rights reserved. This information is not intended as a substitute for professional medical care. Always follow your healthcare professional's instructions. [facility] [address] [place] [address] Name: BEE POLANCO Current Date: 10/31/2011 08:20:35 This document has images extracted. Please consider using [employer] for all your patient education needs. Source: [facility] Room Choice Document Id: [id number] Laquita Funk R.N. - 10/31/2011 7:53 AM [...] FUNK RN - 10/31/2011 7:53 CDT Source: [facility] Room Choice Document Id: [id number] Bassem Diaz M.D. - 10/31/2011 12:00 AM CDT DISCHARGE SUMMARY Event Type: SUM Date of : 1980 DICTATED BY: Bassem Diaz MD DATE OF SERVICE: 10/31/2011 DISCHARGE DIAGNOSES Ulen 1: Anxiety disorder, not otherwise specified. Major depression. Partner relational problem. Alcohol dependence. Cannabis dependence. Lorazepam abuse. Ulen 2: Antisocial features. Ulen 3: Night sweats thought to be possibly secondary to paroxetine use. Ulen 4: Severity of psychosocial stressors: Family, interpersonal, and employment concerns. Ulen 5: Current GAF: 37. IDENTIFICATION: This is a 31-year-old woman residing in [place], [place]. SIGNIFICANT FINDINGS: This is the first [facility] Psychiatric Services Unit admission for this woman. [...] be seen by Dr. Suarez for followup. GA:fredis cc Electronically Signed By: BASSEM DIAZ MD On: 11/03/2011 09:20 AM Source: [facility] AMCDICTAPHONESYS Document Id: [id number] Jorge Ly RJoannaN. - 10/27/2011 11:19 PM CDT ED Discharge Instructions [address] [address] Name: BEE POLANCO Date of : 1980 12:00 AM Visit Date: 10/27/2011 7:21 PM Address: [address] [place] [address] Primary Care Provider: JEM SUAREZ MD IMPORTANT: [facility] in [place] would like to thank you for allowing [...] nurse or physician. Patient Signature or Responsible Libertarian/Relationship Date/Time Provider Signature Date/Time Medication Reconciliation: Reconciliation [...] nurse or physician. Patient Signature or Responsible Libertarian/Relationship Date/Time Provider Signature Date/Time Source: [employer] Room Choice Document Id: [id number] Jorge Ly R.N. - 10/27/2011 11:19 PM CDT ED Depart Summary [facility] Emergency Department / Urgent Care Clinical Discharge Summary PERSON INFORMATION Name BEE POLANCO Age 31 Years 1980 12:00 AM Sex Female Language Georgian PCP JEM SUAREZ MD Marital Status Single Visit Id Visit Reason DIRECT ADMIT Specialty Enc Type Emergency Med Service Emergency Medicine Referred by [facility] ED/UC Discharge Tracking Id [id number] Checkout 10/27/2011 11:19 PM Checkin 10/27/2011 7:21 PM Acuity Dispo Type Admitted as Inpatient to this Hospital Arrival 10/27/2011 7:21 PM Reg Status Complete LOS 000 03:58 Address: [address] [place] [address] Comment: PROVIDER INFORMATION Provider Role Provider Contact Time DIAGNOSIS Comment: PATIENT EDUCATION INFORMATION Instructions: Follow up: Source: [facility] Document Id: [id number] documented in this encounter Progress Notes Batool [...] MATTHEWS OTR - 10/31/2011 11:19 CDT Source: [facility] Document Id: [id number] Bassem Diaz M.D. - 10/31/2011 12:00 AM CDT PROGRESS/PROCEDURE NOTE Event Type: PROG Date of : 1980 DICTATED BY: Bassem Diaz MD DATE: 10/31/2011 IMPRESSION/REPORT/PLAN IMPRESSION: Ulen 1: Alcohol dependence. Cannabis dependence. Lorazepam abuse. Substance-induced mood disorder versus mood disorder, not otherwise specified versus major depressive disorder. Anxiety, not otherwise specified. Ulen 2: Antisocial features. Ulen 3: History of self-injurious behaviors. Ulen 4: Severity of psychosocial stressors: Relationship; parenting; unemployment concerns; financial concerns. Ulen 5: Current GAF: 37. PLAN: The patient [...] relapse and suicide prevention plan with her. GA:kati cc Electronically Signed By: BASSEM DIAZ MD On: 11/03/2011 09:19 AM Source: [facility] AMCDICTAPHONESYS Document Id: [id number] Conversion, Historical Provider Ser - 10/30/2011 2:35 PM CDT clinical staffing note Clinical Staffing Note In attendance: Psychiatrist: Dr. Diaz Psychologist: Dr. Faustin Inpatient Therapist/Coal Mine Inspector: Dr. White Wellness Practitioner: Maty Stratton Occupational [...] PSY.D., LP On: 10/30/2011 02:40 PM Source: [facility] POWERCHART Document Id: [id number] Migel Stratton - 10/30/2011 1:40 PM CDT WELLNESS PT JOINING IN THE LEARNING AND PRACTICE OF BREATHWORK AND IMAGERY. THE PT STATES THAT SHE HAS NEVEREXPERIENCED IMAGERY A CALMING TECHNIQUE BUT SHE DID FIND IT VERY HELPFUL THIS MORNING AND LEFT HER FEELING VERY RELAXED. Electronically Signed By: MIGEL STRATTON On: 10/30/2011 01:42 PM Source: [employer] Document Id: [id number] Batool Matthews O.T. - 10/30/2011 1:09 PM [...] MATTHEWS OTR - 10/30/2011 13:09 CDT Source: [employer] Document Id: [id number] Bassem Diaz M.D. - 10/30/2011 12:00 AM CDT PROGRESS/PROCEDURE NOTE Event Type: PROG Date of : 1980 DICTATED BY: Bassem Diaz MD DATE: 10/30/2011 IMPRESSION/REPORT/PLAN Ulen 1: Major depression. Anxiety disorder, not otherwise specified. Partner relational problem. Alcohol abuse versus dependence. Cannabis abuse. Lorazepam abuse by history. Ulen 2: Antisocial features. Ulen 3: History of self-injurious behaviors. PLAN: C4 [...] after discussion with her outpatient provider prescriber. GA:sandy cc Electronically Signed By: BASSEM DIAZ MD On: 11/03/2011 09:20 AM Source: [facility] AMCDICTAPHONESYS Document Id: [id number] Conversion, Historical Provider Ser - 10/29/2011 1:50 PM CDT CBT GROUP Reviewed Cognitive Behavioral Therapy (CBT): cognitive distortions and schemas. Met goal by identifying distorted thoughts and schemas. Actively participated in group. Demonstrated a very pleasant attitude. Electronically Signed By: MESHA WHITE PSY.D., LP On: 10/29/2011 01:50 PM Source: [employer] Document Id: [id number] Batool Matthews O.T. - 10/29/2011 1:40 PM [...] MATTHEWS OTR - 10/29/2011 13:40 CDT Source: [employer] Document Id: [id number] Bassem Diaz M.D. - 10/29/2011 12:00 AM CDT PROGRESS/PROCEDURE NOTE Event Type: PROG Date of : 1980 DICTATED BY: Bassem Diaz MD DATE: 10/29/2011 IMPRESSION/REPORT/PLAN ASSESSMENT: Ulen 1: Major depressive disorder. Rule out substance-induced mood disorder. Rule out anxiety disorder. Partner relational conflict. Alcohol abuse versus dependence. Lorazepam abuse (by history.). Ulen 2: Deferred. Ulen 3: History of self-injurious behaviors. PLAN: C4 [...] her mother, and also her drinking pattern. GA:hai cc Electronically Signed By: BASSEM DIAZ MD On: 11/03/2011 09:21 AM Source: [facility] AMCDICTAPHONESYS Document Id: [id number] YT Haresh Faustin Psy.D., L.P. - 10/29/2011 12:00 AM CDT PROGRESS/PROCEDURE NOTE Event Type: PROG Date of : 1980 DICTATED BY: Haresh Faustin PsyD, LP DATE: 10/29/2011 IMPRESSION/REPORT/PLAN Ulen 1: Major depression. Anxiety disorder, not otherwise specified. Partner relational problem. Alcohol abuse versus dependence. Cannabis abuse. Lorazepam abuse by history. Ulen 2: Antisocial features. PLAN: Continue with evaluation [...] FAUSTIN PsyD/VIKRAM On: 10/29/2011 01:48 PM Source: [facility] AMCDICTAPHONESYS Document Id: [id number] Conversion, Historical Provider Ser - 10/28/2011 2:27 PM CDT CBT GROUP Patient attended Cognitive Behavioral Therapy (CBT) group: [facility]. Patient was activelyengaged in treatment and completed activity of identifying negative thoughts, cognitive distortions,and more realistic ways of thinking. Patient displayed a pleasant attitude. Electronically Signed By: MESHA WHITE PSY.D., LP On: 10/28/2011 02:27 PM Source: [facility] POWERCHART Document Id: [id number] Sunil Faye O.T.Julia - 10/28/2011 12:28 PM [...] FAYE OT - 10/28/2011 12:28 CDT Source: [facility] POWERCHART Document Id: [id number] Batool Matthews O.T. - 10/28/2011 12:00 AM CDT PROGRESS/PROCEDURE NOTE Event Type: PROG Date of : 1980 DICTATED BY: JOYCE Motley [place]# [id number] DATE: 10/28/2011 PRIMARY DIAGNOSIS: The patient reported she has a history of depression. REASON FOR ADMISSION: The patient stated, suicidal thoughts because of our relationship. The patient was assessed at [facility] Emergency Department due to depression and suicidal thoughts with a plan to overdose on her medications. The patient was transferred to [facility] Psychiatric Services Unit for further evaluation and [...] to go to college horticultural and also Somali. 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 INTERESTS/LEISURE: The patient likes to spend [...] basic expenses. The patient has a current car pick up driver's license and vehicle. SOCIAL ENVIRONMENT: The [...] MATTHEWS OTR On: 10/31/2011 11:22 AM Source: [facility] AMCDICTAPHONESYS Document Id: [id number] documented in this encounter H&P Notes Batool [...] MATTHEWS OTR - 10/28/2011 14:22 CDT Source: [facility] POWERCHART Document Id: [id number] YT Bassem Diaz M.D. - 10/28/2011 12:00 AM CDT HISTORY & PHYSICAL Event Type: ADM DATE OF EXAMINATION: 10/28/2011 DATE OF ADMISSION: 10/27/2011 IMPRESSION/REPORT/PLAN ASSESSMENT: Ulen 1: Major depressive disorder. Rule out substance-induced mood disorder. Rule out anxiety disorder. Partner relational problem. Alcohol abuse versus dependence. Lorazepam abuse (by history). Ulen 2: Deferred. Ulen 3: History of self-injurious behaviors. Ulen 4: Severity of psychosocial stressors: Employment, financial, relationship concerns. Ulen 5: Current Global Assessment of Functioning (GAF): [...] This is a 31-year-old woman residing in [place], [place]. CHIEF COMPLAINT: Just problems. HISTORY OF PRESENT ILLNESS This is the first [facility] Inpatient Psychiatric Services Unit admission [...] hours p.r.n. ALLERGIES No known drug allergies. Vvde-ljx-jxqkxye medication use: Denied. Alcohol use: Yes, not [...] SOCIAL HISTORY The patient was born in [place], [place]. She has 2 siblings. She states, [...] to school when my mom was in [employer]. She graduated in 1998 after which, I [...] Substance abuse. Dictated By: Bassem Diaz MD GA:maninder cc Electronically Signed By: BASSEM DIAZ MD On: 11/03/2011 09:21 AM Source: [facility] AMCDICTAPHONESYS Document Id: [id number] documented in this encounter Consult Notes Conversion, [...] bus station and heading back to the [facility]. She is wanting to do some individual counseling and possible couples counseling. She denied that there is any access to guns or stockpiles of medications. ECW:fredis cc Electronically Signed By: MESHA WHITE PSY.D., LP On: 11/04/2011 08:18 AM Source: [facility] AMCDICTAPHONESYS Document Id: [id number] Conversion, Historical Provider Ser - 10/29/2011 12:00 AM CDT INPATIENT PSYCH HISTORY Event Type: CON Date of : 1980 DICTATED BY: Mesha White PsyD DATE: 10/29/2011 COLLATERAL INFORMATION: I spoke with the patient's mother, Eulalia Bernstein, (phone number is [phone]). She stated the patient has not been [...] telephone. ECW:deidra cc Electronically Signed By: MESHA WHITE PSY.D., LP On: 10/30/2011 08:02 AM Source: [facility] AMCDICTAPHONESYS Document Id: [id number] YT Orville Andres L.A.D.C. - 10/29/2011 12:00 AM CDT CONSULTATION Event Type: CON Date of : 1980 DICTATED BY: LIZ Frey II [facility] FAMILY PHYSICIAN: TYPE OF CONSULTATION: CHEMICAL DEPENDENCY [...] report. HIREN:ananth cc Electronically Signed By: ORVILLE ANDRES,[facility] On: 11/04/2011 09:03 AM Source: [facility] AMCDICTAPHONESYS Document Id: [id number] Conversion, Historical Provider Ser - 10/28/2011 12:00 AM CDT INPATIENT PSYCH HISTORY Event Type: CON Date of : 1980 DICTATED BY: Mesha White PsyD DATE: 10/28/2011 IDENTIFYING INFORMATION: Patient is a 31-year-old female from [place]. PRESENTING PROBLEM: The patient reported that she [...] denied developmental delays. She was born in [place] and raised all over [place] saying she moved around a lot. She [...] access to guns or stockpiles of medications. SPIRITUALITY/HINDU BELIEF: The patient denied. PATIENT GOALS FOR TREATMENT: Patient reported I want to get my head straight. She also expressed a desire to look at her medications. COLLATERAL INFORMATION: Patient authorized contact with her mother, Latanya Bernstein ([phone]). ECW:jonny/maninder/jonny cc Electronically Signed By: MESHA WHITE PSY.D., LP On: 10/30/2011 08:11 AM Modified by and Electronically Signed by: MESHA WHITE PSY.D., LP On: 10/30/2011 08:11 AM Source: [facility] AM[employer]APHONESYS Document Id: [id number] Nani Strong, Ph.D. - 10/27/2011 12:00 AM CDT CONSULTATION Event Type: CON Date of : 1980 DICTATED BY: Nani Strong, PhD, LP FAMILY PHYSICIAN: TYPE OF CONSULTATION: Mental Health Phone Consultation DATE OF CONSULTATION: 10/27/2011 CHIEF COMPLAINT/REASON FOR VISIT Bee Polanco a 31-year-old female from [place], [place], who is currently presenting to the Emergency Department in [place]. She has been depressed with suicidal thoughts and plan of overdosing on all her medication. Based on the assessment of the patient by the Emergency Department personnel at [place], it was determined that the patient is in need of inpatient psychiatric care. However, [place] has no psychiatric beds available and thus the need for the patient to be transferred for this care. [facility] was contacted to determine if the patient can be received by this facility. We are doing so. PRESENTING PROBLEM: Bee Polanco is a 31-year-old female who has reportedly been experiencing depression, possibly connected to relationship difficulties with her significant other. It was reported by the Emergency Department staff at [place] that she has been doing some binge [...] She did indicate to nursing staff at [place] that her plan is to overdose on all of her medications. The patient currently is not involved in any mental health services. She had been seen in the past year in the Emergency Department at [place], and this was reportedly for mental health support. At that time, she was recommended to seek outpatient mental health services, but she has reportedly not done so to date. The patient is currently prescribed both Paxil and Ativan by her primary care provider. She did have a blood alcohol level of 0.01 on this day according to the staff at [place]. She is also positive for THC by report. The patient reportedly has no legal issues pending at this time. She has presented as cooperative and not violent or resistant. Nonetheless, [place] is placing her on a hold. The patient is going to be transferred to [facility], specifically to be admitted to the Psychiatric Services Unit. This will be the first inpatient psychiatric hospitalization for the patient according to [facility]. As noted, she is being placed on a hold and will be transported by ambulance. Her significant other has indicated that once she is deemed ready for discharge from inpatient psychiatric care he is willing to travel to [place] in order to transport her back to her community. BERNARDA:kati cc Electronically Signed By: NANI STRONG PhD/LP On: 10/28/2011 08:01 AM Modified by and Electronically Signed by: NANI STRONG PhD/LP On: 10/28/2011 08:01 AM Source: [facility] AMCDICTAPHONESYS Document Id: [id number] documented in this encounter Nursing Notes Laquita [...] FUNK RN On: 10/31/2011 07:57 AM Source: [employer] Room Choice Document Id: [id number] Kendra Cohen R.N. - 10/31/2011 12:50 AM CDT sleep Pt sleeping Electronically Signed By: KENDRA COHEN RN On: 10/31/2011 12:50 AM Source: [facility] Room Choice Document Id: [id number] Laquita Funk R.N. - 10/30/2011 11:55 AM CDT Wanting information on taking a bus [facility]. Gave patient information taking shuttle to [place] from [employer] shuttle leaves at 2 p.m. checking by 1:45 and cost is $40.50 and would arrive in [facility] at 5:30 p.m. Electronically Signed By: LAQUITA FUNK RN On: 10/30/2011 11:57 AM Source: [employer] Document Id: [id number] Amelia Liu R.N. - 10/30/2011 5:33 AM CDT slept all night, offers no complaints. Electronically Signed By: AMELIA SMITH RN On: 10/30/2011 05:33 AM Source: [employer] [facility] Room Choice Document Id: [id number] Laquita Funk R.N. - 10/29/2011 1:33 PM CDT [facility]. See [...] FUNK RN On: 10/29/2011 01:38 PM Source: [employer] Document Id: [id number] Linda Yadav R.N. - 10/28/2011 10:20 PM [...] YADAV RN On: 10/28/2011 10:22 PM Source: [employer] Document Id: [id number] Janet Suero R.N. - 10/28/2011 1:31 AM CDT pt note Sent from [place] ER as they had no beds, for [...] her boyfriend, although they live together...will need 7th grade social studies teacher to look in to that matter. Denies any health issues. Cooperative, calm and pleasant. Electronically Signed By: JANET SUERO RN On: 10/28/2011 01:41 AM Source: [facility] StudentboxCHART Document Id: [id number] documented in this encounter ED Notes Sabrina [...] RN - 10/27/2011 23:06 CDT Allergy Source: [facility] Room Choice Document Id: [id number] documented in this encounter Miscellaneous Notes Miscellaneous - Laquita Funk R.N. - 10/31/2011 8:20 AM CDT Inpatient Patient Education The following Patient Education Materials have been given to the patient: Patient Education Materials: David Orr Depression: Tips to Help Yourself David Orr [address] Depression: Tips to Help Yourself As your [...] you can. Go to a movie, ballgame, mandaeism service, or social event. Talk openly with [...] diet helps keep your body healthy. ?? [phone] [employer], [address] [place] [address], [place] [address]. All rights reserved. This information is not intended as a substitute for professional medical care. Always follow your healthcare professional's instructions. This document has images extracted. Please consider using [employer] for all your patient education needs. Source: [facility] POWERCHART Document Id: [id number] Miscellaneous - Bassem Diaz M.D. - 10/31/2011 8:11 AM CDT Inpatient Patient Education The following Patient Education Materials have been given to the patient: Patient Education Materials: No instructions were provided. No instructions were provided. Source: [facility] Document Id: [id number] Miscellaneous - Laquita Funk R.N. - 10/31/2011 [...] FUNK RN - 10/31/2011 7:52 CDT Source: [facility] Room Choice Document Id: [id number] Miscellaneous - Laquita Funk R.N. - 10/31/2011 [...] FUNK RN - 10/31/2011 7:50 CDT Source: [facility] [employer]CHART Document Id: [id number] Miscellrose - Kendra Cohen R.N. - 10/31/2011 [...] COHEN RN - 10/31/2011 0:58 CDT Source: [employer] Document Id: [id number] Teeteecellrose - Kendra Cohen R.N. - 10/31/2011 [...] COHEN RN - 10/31/2011 0:58 CDT Source: [facility] Room Choice Document Id: [id number] Marnie Haynes R.N. - 10/30/2011 7:13 PM [...] QURESHI RN - 10/30/2011 19:13 CDT [facility]: [facility] Document Id: [id number] Marnie Haynes R.N. - 10/30/2011 5:33 PM [...] QURESHI RN - 10/30/2011 17:33 CDT Source: [facility] POWERCHART Document Id: [id number] Miscellaneous - Laquita Funk R.N. - 10/30/2011 [...] FUNK RN - 10/30/2011 8:46 CDT Source: [employer] Document Id: [id number] Miscellaneous - Laquita Funk R.N. - 10/30/2011 [...] FUNK RN - 10/30/2011 8:41 CDT Source: [facility] Document Id: [id number] Miscellaneous - Amelia Liu R.N. - 10/30/2011 3:25 AM CDT Adult Ongoing Assessment Adult Ongoing Assessment Entered On: 10/30/2011 3:26 CDT Performed On: 10/30/2011 3:25 CDT by AMELIA SMITH RN Psycho/Emotional Psycho/Emotional Detailed Assessment : Yes AMELIA SMITH RN - 10/30/2011 5:33 CDT Affect/Behavior : [...] SMITH RN - 10/30/2011 3:25 CDT Source: [employer] Document Id: [id number] Miscellaneous - Amelia Liu R.N. - 10/30/2011 [...] 3:25 CDT Source: [facility] POWERCHART Document Id: [id number] Miscellaneous - Laquita Funk R.N. - 10/29/2011 [...] FUNK RN - 10/29/2011 17:11 CDT Source: [employer] Document Id: [id number] Miscellaneous - Laquita Funk R.N. - 10/29/2011 [...] FUNK RN - 10/29/2011 10:13 CDT Source: [facility] POWERCHART Document Id: [id number] Miscellaneous - Laquita Funk R.N. - 10/29/2011 [...] FUNK RN - 10/29/2011 10:13 CDT Source: [employer] Document Id: [id number] Miscellaneous - Ariel Sutherland RKallie - 10/29/2011 [...] SUTHERLAND RN - 10/29/2011 0:05 CDT Source: [employer] Document Id: [id number] Cheikh - Ariel Sutherland R.N. - 10/29/2011 [...] SUTHERLAND RN - 10/29/2011 0:04 CDT Source: [employer] Document Id: [id number] Cheikh - Linda Yadav R.N. - 10/28/2011 [...] : Explanation Teaching Evaluation : Verbalizes understanding LINDA YADAV RN - 10/28/2011 21:19 CDT Source: [facility] POWERCHART Document Id: [id number] Miscellaneous - Linda Yadav, R.N. - 10/28/2011 [...] : Independent Alma Care : Independent LINDA YADAV RN - 10/28/2011 21:18 CDT Serrano Catheter Care Done : No Elimination Assistance Offered Q2H : Independent Standard Safety : Bed in low position, ID band check, Non-Slip footwear, Other: C3SP LINDA YADAV RN - 10/28/2011 21:18 CDT ADLs Adult Nutrition Feeding Assistance : Independent Dinner : 100% Evening Snack : 100% LINDA YADAV RN - 10/28/2011 21:18 CDT Source: [employer] Document Id: [id number] Miscellaneous - Magnolia Han RJoannaNJoanna - 10/28/2011 [...] HAN RN - 10/28/2011 14:32 CDT Source: [facility] POWERCHART Document Id: [id number] Miscellaneous - Magnolia Han R.N. - 10/28/2011 [...] HAN RN - 10/28/2011 10:24 CDT Source: [employer] Document Id: [id number] Miscellaneous - Janet Suero RJoannaNJoanna - 10/28/2011 [...] SUERO RN - 10/28/2011 4:58 CDT Source: [employer] Document Id: [id number] Cheikh - Janet Suero R.N. - 10/28/2011 [...] SUERO RN - 10/28/2011 1:29 CDT Source: [facility] POWERCHART Document Id: [id number] Cheikh - Janet Suero R.N. - 10/28/2011 [...] SUERO RN - 10/28/2011 0:54 CDT Source: [facility] POWERCHART Document Id: [id number] Miscellaneous - Janet Suero R.N. - 10/28/2011 [...] SUERO RN - 10/28/2011 0:52 CDT Source: [employer] Document Id: [id number] Miscellaneous - Janet Suero R.N. 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 - 10/27/2011 11:16 PM CDT Communication Note Communication Note Entered On: 10/27/2011 23:16 CDT Performed On: 10/27/2011 23:16 CDT by JORGE LY RN Communication Assessment Communication Note : Patient changed into scrubs and searched by security. Taken to [facility] by security. JORGE LY RN - 10/27/2011 23:16 CDT Source: [employer] Document Id: [id number] documented in this encounter Plan of Treatment [...] M.D. LAB HISTORICAL ORDERS Performing Organization Address City/[facility]/ZIP Code Phon e Number POWERCHART Urinalysis, Midstream, with culture if indicated (10/28/2011 9:10 PM CDT) [facility] gist Method Time Signature Source Clean Void POWERCHART Urine HXUr Color Yellow Yellow POWERCHART Appearance Clear Clear POWERCHART Specific 1.010 1.003 - POWERCHART [place], POCT, U 1.035 pH, POCT, Urine 6.5 [...] M.D. LAB URINE ORDERABLES Performing Organization Address [facility] Phon e Number POWERCHART Thyroid-Stimulating Hormone-Sensitive (s-TSH) [...]
--- NOTE | 2022-03-03 13:00 | MR_ITS ---
[address] [address] Phone:?[phone] Fax:?[phone] Referring Physician Information: Arianne Isabel [address] [facility] [address] Phone:?[phone] Fax:?[phone] Patient:?Patsy Jean Baptiste D.O.B:?1980 Sex:?Female Phone:?[phone] [facility] MRN:?[id number] Exam Date:?03/03/2022 ? EXAM: MRI EXAMINATION OF THE LEFT KNEE CLINICAL INFORMATION: Left knee pain. Status post patellar dislocation injury. Evaluate medial patellofemoral ligament injury. Evaluate chondral loose body. TECHNICAL INFORMATION: Coronal PD and STIR. Axial PD and T2 fat saturation. Sagittal PD and PD fat saturation images acquired. INTERPRETATION: Bones: There is a marked appearance of marrow edema signal to indicate osseous contusion involving the mid to anterior periphery of the lateral femoral condyle. There is a minimal appearance of associated impaction fracturing. Additional osseous contusion with mild impaction fracturing along the inferomedial periphery of the patella. No other occult fracture or osseous contusion. No other abnormal bone marrow edema pattern is identified. Ligaments and tendons: The medial collateral ligament is intact, without acute sprain or tear. The iliotibial band, fibular collateral ligament, biceps femoris tendon and popliteus tendon all are intact. The anterior cruciate ligament is intact without acute sprain or tear. The posterior cruciate ligament is intact. Extensor Mechanism: The patellar and quadriceps tendons are intact. The lateral retinaculum is seen to be intact. Acute sprain injuries involving the medial retinaculum and medial patellofemoral ligament. High-grade tearing and indistinctness involves the mid to inferior patellar attachments with additional high-grade tearing of the expected femoral attachments. Knee Joint: There is a small to moderate knee joint effusion. There is a small popliteal cyst. Series 4 image 9 as well as series 5 image 24 demonstrate a 1.3 x 0.8 x 0.4 cm loose body within the lateral patellofemoral joint recess. Medial Compartment: Intrasubstance signal is identified within the body and posterior horn medial meniscus. No evidence for surface extension as tear, though. No displaced flap fragment or parameniscal cyst. There is no focal chondral defect. No other significant changes of chondromalacia. Lateral Compartment: There is no evidence for discrete lateral meniscal tear. No displaced flap fragment or parameniscal cyst. There is no focal chondral defect. No other significant changes of chondromalacia. Patellofemoral articulation: Series 6 image 17 and series 4 image 13 demonstrate a 0.9 x 0.8 cm chondral defect from the inferior midline patella and adjacent lateral facet. The trochlear groove articular cartilage appears preserved. CONCLUSION: 1. Osseous contusion pattern and mild impaction fracturing associated with transient lateral patellar dislocation injury. 2. Approximate 9 x 8 mm full-thickness chondral defect from the inferior midline patella and lateral facet. 3. There is a small to moderate knee joint effusion. There is a chondral loose body identified within the lateral patellofemoral joint recess. 4. Acute injury with high-grade tearing of the expected femoral attachment as well as the mid to inferior patellar attachments of the medial retinaculum and medial patellofemoral ligament. 5. No evidence for a meniscal tear. The cruciate ligaments are intact. KES Electronically signed on 03/03/2022 3:16:00 PM by Kemar Hernandez M.D.
== END 2022-03-03 12:51 | disposition home or self-care (01) ==
LOC: MRI 12:51
PROVIDERS: PCP Family Medicine; Visit Provider Physician Assistant Surgical
DX: M25.562 Pain in left knee (principal); S83.006A Unspecified dislocation of unspecified patella, initial encounter; M25.462 Effusion, left knee; S83.242A Other tear of medial meniscus, current injury, left knee, initial encounter
CPT/HCPCS: 73721

== ENCOUNTER 2022-03-19 08:06 | Day surgery (SDC) | payer MEDICAID, SELFPAY ==
[2022-03-19] VITALS (10 sets, daily range): BP systolic 94–129; BP diastolic 59–90; PULSE 40–72; RESP 14–18; TEMP 36.3–37.1; O2SAT 95–99; BMI 29.9
[2022-03-19] MEDS: LACTATED RINGERS 1000 ML 1,000 ML 100 ML IV ×2 (08:30→11:25)
[2022-03-19] MEDS: SODIUM CHLORIDE 0.9 % (FLUSH) 10 ML SYRINGE IVF (08:51)
[2022-03-19] MEDS: ROPIVACAINE 0.5% 30 ML 150 MG INJECTION (11:04)
--- NOTE | 2022-03-19 11:04 | P.ORPRC_ITS ---
Procedure Note Date of procedure: 03/19/22 Procedure: PREOPERATIVE DIAGNOSIS: 1. Left knee patellar dislocation, acute, with subsequent is loose body 2. 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 Left knee patellar dislocation, acute, with subsequent is loose body 2. 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 Left knee arthroscopic loose body removal 2. Left knee arthroscopic chondroplasty patella SURGEON: Carlos Alberto Herr M.D. FURNACE DOOR TENDER: Robb SWEENEY. Of note, an back office medical assistant was critical for this case to aid in patient positioning, knee manipulation, instrument exchange, and closure. ANESTHESIA: Spinal EBL: 2ml TOURNIQUET: 20 minutes at 250 torr COMPLICATIONS: None evident INDICATIONS: The patient is a pleasant 41-year-old female who sustained an acute left knee patellar dislocation event in the recent past. Workup including MRI which revealed the full-thickness chondral defect inferior pole median ridge patella with associated loose body. Given the loose body, surgery was recommended. FINDINGS: Full-thickness chondral defect inferior pole median ridge patella measuring approximately 8 mm in diameter with grade 3 chondromalacia surrounding this. Loose body was eventually visualized in the posterior lateral joint recess. We were able to remove this completely. Otherwise, the knee showed healthy articular cartilage in the medial and lateral compartments. Intact medial and lateral menisci. Intact ACL and PCL. DESCRIPTION OF PROCEDURE: After a thorough discussion of risks, benefits, and alternatives, the patient was brought to the operating room and placed upon the operating table. Induction of anesthesia was undertaken as previously noted. 2g iv Ancef was administered within 1 hr of incision preoperatively. Appropriate time-out was performed identifying proper patient, site, and procedure. The left lower extremity was prepped and draped in the appropriate sterile fashion using ChloraPrep. The limb was exsanguinated and tourniquet inflated. Anterolateral and anteromedial portals were established with an 11 blade, and a diagnostic arthroscopy was performed. This identified the findings as noted above. Following the diagnostic arthroscopy, the loose body was visualized in the posterior lateral recesses of the knee. It was able to be brought into the lateral compartment and eventually the anterolateral knee at this stage, the pituitary rongeur was utilized to remove this loose body and bloc. It measured approximately 9 mm in greatest dimension. The torpedo shaver was also utilized for chondroplasty of the loose chondral flaps on the inferior pole of patella median ridge. At this stage, the shaver was reinserted into the suprapatellar pouch and all remaining meniscal debris was evacuated. Instruments were removed, excess fluid was drained, and closure performed with 4-0 Monocryl with Steri-Strips. Dressings were applied, the tourniquet deflated, and the patient was awoken from anesthesia and transferred to the PACU in stable condition. PLAN: 1. Weightbear as tolerated operative extremity. Crutch / walker ambulation assistance PRN. Straight leg raise to be initiated starting tomorrow by the patient. 2. Ice, acetominophen and/or ibuprofen, and Percocet for pain as needed. 3. Knee range of motion and quad sets/straight leg raise regularly 4. Follow up with PA visit in 7-10 days. for a wound check. Initiate physical therapy at that time
[2022-03-19] MEDS: hydrOXYzine pamoate 25 MG CAPSULE PO (11:20)
--- NOTE | 2022-03-19 11:20 | W.ANESCHARGE ---
Anesthesia Charges Start Date/Time Anesthesia Start Date: 03/19/22 Anesthesia Start Time: 10:18 Stop Date/Time Anesthesia Stop Date: 03/19/22 Anesthesia Stop Time: 11:19 Summary Emergency: No
--- NOTE | 2022-03-19 11:24 | W.ANESCHARGE ---
Anesthesia Charges Start Date/Time Anesthesia Start Date: 03/19/22 Anesthesia Start Time: 10:18 Stop Date/Time Anesthesia Stop Date: 03/19/22 Anesthesia Stop Time: 11:19 Summary Emergency: No
== END 2022-03-19 12:42 | disposition home or self-care (01) ==
PROVIDERS: PCP Family Medicine; Visit Provider Orthopaedic Surgery Sports Medicine
PROC: (CPT 29870; principal; 2022-03-19 09:30)
DX: M23.42 Loose body in knee, left knee (principal); M22.42 Chondromalacia patellae, left knee; S83.09 Other subluxation and dislocation of patella
CPT/HCPCS: 29874; 01400; A9270; J1100; J2250; J2400; J2405; J2704; J2795; J3010; J7120

== ENCOUNTER 2022-04-17 14:31 | Outpatient (CLI) | payer MEDICAID, SELFPAY ==
[2022-04-17 16:21] LABS: Albumin* 4.6 g/dL (3.3-5.0); Chloride* 107 mmol/L (96-114); Potassium* 4.2 mmol/L (3.6-5.1); Sodium* 141 mmol/L (135-149)
[2022-04-17 16:23] LABS: Bilirubin Total* 0.5 mg/dL (0.1-1.5); Estimated Glomerular Filt Rate 72 ml/min
[2022-04-17 16:24] LABS: Alanine Aminotransferase* 17 U/L (4-35); Alkaline Phosphatase* 64 U/L (40-150); Aspartate Amino Transferase* 27 U/L (12-35); Blood Urea Nitrogen* 18 mg/dL (5-24); Calcium* 9.6 mg/dL (8.4-10.6); Carbon Dioxide* 30 mmol/L (20-32); Glucose* 76 mg/dL (60-115)
[2022-04-17 17:01] LABS: Ferritin* 40.1 ng/mL (6.24-137.0)
[2022-04-17 17:14] LABS: Vitamin B12* 408 pg/mL (243-894)
== END 2022-04-17 14:32 | disposition home or self-care (01) ==
PROVIDERS: PCP Family Medicine; Visit Provider Family Medicine
DX: L65.9 Nonscarring hair loss, unspecified (principal); R53.83 Other fatigue
CPT/HCPCS: 80053; 82607; 82728; 84443

== ENCOUNTER 2022-04-21 13:54 | Outpatient (RCR) | payer MEDICAID, SELFPAY | END 2022-10-30 23:59 | disposition home or self-care (01) | PROVIDERS: PCP Family Medicine; Visit Provider Physician Assistant Surgical | DX: Z98.890 Other specified postprocedural states (principal); Z51.89 Encounter for other specified aftercare | CPT/HCPCS: 97161 ==

== ENCOUNTER 2022-05-19 13:30 | Outpatient (RCR) | payer MEDICAID, SELFPAY ==
--- NOTE | 2022-03-11 18:49 | PT.OPE ---
PT [place] Outpatient Eval PT [facility] Outpatient Eval Start: 03/11/22 11:10 Freq: Status: Active Protocol: Document 03/11/22 11:11 LSL (Rec: 03/11/22 14:04 LSL [id number]) E-signed By Yelena Perez PT Physical Therapy Outpatient Evaluation Insurance Information Recert Due Date 06/10/22 Insurance Name Medicaid,[facility] Medical Diagnosis L patellar dislocation Treating Diagnosis weakness, pain, impaired ROM, impaired gait, impaired balance Referring MD Lord Subjective Subjective Pt. reports tripped and fell on Halloween dislocating her patella. It is slowly getting better but she is scheduled to have surgery on 03-19-22 to remove a loose body. I really haven't been able to do anything . 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 Pt. reports she feels things shift around in there and it scares her. Pain is mostly in the front of the knee in the proximal lateral portion and inferomedial portion of her knee. She describes the pain as an ache and pressure. Pt. using B axillary crutches and has 3 flights of stairs into and out of apartment but not once in the apartment. Pt. is wearing the brace issued by ortho. IMAGING - MRI 03/03/22 1. Osseous contusion pattern and mild impaction fracturing associated with transient lateral patellar dislocation injury. 2. Approximate 9 x 8 mm full- thickness chondral defect from the inferior midline patella and lateral facet. 3. There is a small to moderate knee joint effusion. There is a chondral loose body identified within the lateral patellofemoral joint recess. 4. Acute injury with high- grade tearing of the expected femoral attachment as well as the mid to inferior patellar attachments of the medial retinaculum and medial patellofemoral ligament. 5. No evidence for a meniscal tear. The cruciate ligaments are intact. 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 is a 41 y/o female who sustained and patellar dislocation and is having surgery on 03/19/22 to remove a loose body. She has significant loss of quadriceps strength, ROM and stability. This is all impacting her ability to walk and perform job tasks. She is fearful of hurting herself again. She will benefit from PT to improve her strength and ROM as she goes into surgery and then progress as appropriate after her surgery. Primary Functional Limitations walking, squatting, kneeling, stairs Plan of Care Rehabilitation Potential Good Physical Therapy Goals SHORT TERM GOALS: (pre-surgery ) 1. Compliant with HEP to improve quadriceps firing and ROM prior to surgery. 2. Pt. able to properly ambulate with single and bilateral crutches for household and community ambulation. 3. Pt. understands proper technique up and down stairs with crutches. BOOK SORTER GOALS: (to be established after surgery) Coordination/Communication With Referral Source Treatment Plan/Direct Interventions Ice/Cold/Vasopneumatic,Manual Therapy,Neuromuscular Re-ed, Self-Care/Home Management, Therapeutic Exercises Frequency/Duration 2x/week 8 weeks Patient Will Be Discharged From Therapy Completion of LTG(s),Skills Plateau,Independent w/HEP, Independently Progressing Evaluation Billing Untimed Code Treatment Minutes 30 Complexity Low Certification Information Initial Certification Date 03/11/22 Ending Certification Date 06/10/22 Provider Signature Shows Agreement With POC & Medical Necessity Physician Signature & Date Requested Please Sign/Date Here Physician Comment/Change : Physician NPI Number #
== END 2022-07-22 15:44 | disposition home or self-care (01) ==
PROVIDERS: PCP Family Medicine; Visit Provider Physician Assistant Surgical
DX: S83.006D Unspecified dislocation of unspecified patella, subsequent encounter (principal); R26.89 Other abnormalities of gait and mobility; Z51.89 Encounter for other specified aftercare
CPT/HCPCS: 97110; 97112; 97140; 97161; 97164; 97530

== ENCOUNTER 2022-07-07 13:54 | Outpatient (CLI) | payer MEDICAID, SELFPAY ==
[2022-07-07 23:29] LABS: Chlamydia DNA Amplified* NOT DETECTED (No Detected); GC DNA Amplified* NOT DETECTED (No Detected)
== END 2022-07-07 13:55 | disposition home or self-care (01) ==
LOC: NFLDUCREF 14:09
PROVIDERS: PCP Family Medicine; Visit Provider Nurse Practitioner Family
DX: N76.0 Acute vaginitis (principal)
CPT/HCPCS: 0353U

== ENCOUNTER 2022-10-28 14:41 | Outpatient (CLI) | payer MEDICAID, SELFPAY ==
--- NOTE | 2022-10-28 15:00 | CRLHL7_ITS ---
For Patients: As a result of the Century Cures Act, medical imaging exams and procedure reports are released immediately into your electronic medical record. You may view this report before your referring provider. If you have questions, please contact your health care provider. INDICATION: Excessive and frequent menses. TECHNIQUE: Transabdominal and transvaginal pelvic ultrasound. Grayscale images obtained. FINDINGS: The uterus measures 8.7 x 4.5 x 5.3 cm. The endometrial stripe measures 12 mm transvaginally. Minor heterogeneous echotexture of the uterine myometrium nonspecific. No discrete myometrial mass. Normal ovaries without masses. The right ovary measures 3.1 x 1.9 x 2.3 cm. The left ovary measures 2.9 x 1.5 x 2.4 cm. No free pelvic fluid. IMPRESSION: Mild heterogeneous uterine echotexture. The examination is otherwise negative. Dictated by Freddy Holder MD @ 10/28/2022 4:01:21 PM (Electronically Signed)
== END 2022-10-28 14:42 | disposition home or self-care (01) ==
LOC: US 14:42
PROVIDERS: PCP Family Medicine; Visit Provider Family Medicine
DX: N92.0 Excessive and frequent menstruation with regular cycle (principal)
CPT/HCPCS: 76830; 76856

== ENCOUNTER 2022-11-27 15:07 | Outpatient (CLI) | payer MEDICAID, SELFPAY | END 2022-11-27 15:08 | disposition home or self-care (01) | PROVIDERS: PCP Family Medicine; Visit Provider Physician Assistant | DX: N92.0 Excessive and frequent menstruation with regular cycle (principal); N92.6 Irregular menstruation, unspecified; N93.8 Other specified abnormal uterine and vaginal bleeding | CPT/HCPCS: 80053; 80061; 84443 ==

== ENCOUNTER 2023-03-11 06:19 | Day surgery (SDC) | payer MEDICAID, SELFPAY ==
[2023-03-11] MEDS: LACTATED RINGERS 1000 ML 1,000 ML 100 ML IV (06:10)
[2023-03-11 06:30] VITALS: BP 114/74; PULSE 76; RESP 16; TEMP 36.7; BMI 27.4
[2023-03-11] MEDS: SODIUM CHLORIDE 0.9 % (FLUSH) 10 ML SYRINGE IVF (06:30)
[2023-03-11 06:42] LABS: Ur HCG Qualitative* Negative (Negative)
--- NOTE | 2023-03-11 06:51 | W.ANESCHARGE ---
Anesthesia Charges Start Date/Time Anesthesia Start Date: 03/11/23 Anesthesia Start Time: 07:20 Stop Date/Time Anesthesia Stop Date: 03/11/23 Anesthesia Stop Time: 08:10
--- NOTE | 2023-03-11 06:53 | W.PM.H&PU ---
History & Physical Update History & Physical Update H&P Reviewed and patient assessed: No changes noted H&P Updates: No menses for the last 4 months.
[2023-03-11 08:10] VITALS: BP 128/90; PULSE 89; RESP 16; TEMP 36.6; O2SAT 94
[2023-03-11 08:15] VITALS: BP 125/78; PULSE 85; RESP 16; O2SAT 94
--- NOTE | 2023-03-11 08:17 | P.GYNPRC_ITS ---
Procedure Note Time Seen by Provider: 08:18 Date of procedure: 03/11/23 Pre-op diagnosis: Abnormal uterine bleeding - menorrhagia (NOS) Post-op diagnosis: same Procedure: Hysteroscopy, dilation curettage, Mirena IUD insertion Anesthesia: MAC and local Complications: None Surgeon: Francisca Saini MD Urine Output (mL): 15 Pathology: specimen obtained, sent to pathology (Endometrial curetting) Condition: stable Disposition: PACU Procedure Description: Preoperative diagnosis: Patsy is a 42 year-old with abnormal uterine bleeding - NOS/menorrhagia. Postoperative diagnosis: Same Procedure: Hysteroscopy, dilation and curettage, and Mirena IUD insertion. Anesthesia: Conscious sedation with paracervical block. Surgeon: Francisca Saini MD Estimated blood loss: <5 mL Specimen: Endometrial curettings to pathology. Findings: Exam under anesthesia: Cervix palpates normal. Uterus: anterior position, 5 week size, mobile, without nodularity/masses palpable. Adnexa were without fullness or nodularity. On hysteroscopy: Normal appearing uterine cavity - uterine sound indentation noted at the fundus. Prominent left tubal ostia. Normal right tubal ostia. Normal cerivcal canal. Procedure: Patsy was taken to the operating where conscious sedation was found to be adequate. She was placed in the dorsal lithotomy position. An exam under anesthesia was performed with findings stated above. She was then prepped and draped in normal sterile manner. Bladder was drained with rubber catheter. A bivalve metal speculum was placed in the vaginal canal. The cervix and vaginal canal appear normal. A paracervical block was placed using 1% lidocaine with epi: 5 mL injected at the 4 and 8 o'clock positions on the cervix. The anterior lip of the cervix was then grasped with a long Allis clamp. The cervix was dilated to Hegar 6. The uterus sounded to 7 cm. The hysteroscope advanced into the uterus and a diagnostic hysteroscopy was performed with findings stated above. Normal saline was used as the insufflation medium. Soft tissue shaver was used to obtain endometrial sampling. The hysteroscope was then removed. A sharp curettage was performed u ntil a gritty texture was noted. Fluid deficit at the end of the procedure 755 mL. Attention was then turned towards IUD Insertion. The Mirena IUD is loaded into the insertion tube, inserted to the sounded depth, and the IUD is deployed. Insertion tube was removed. Strings are trimmed to 3 cm. Allis clamp and speculum were removed. Excellent hemostasis noted. Nothing was used for hemostasis. The patient tolerated the procedure well. Sponge, lap and instruments counts were correct at the end of the procedure. The patient was awakened from anesthesia and taken to the recovery area in stable condition. Surgical debrief performed.
--- NOTE | 2023-03-11 08:17 | W.ANESCHARGE ---
Anesthesia Charges Start Date/Time Anesthesia Start Date: 03/11/23 Anesthesia Start Time: 07:20 Stop Date/Time Anesthesia Stop Date: 03/11/23 Anesthesia Stop Time: 08:10
[2023-03-11] MEDS: ACETAMINOPHEN 325 MG TABLET PO (08:29)
[2023-03-11 08:30] VITALS: BP 119/77; PULSE 90; RESP 16; O2SAT 94
[2023-03-11 08:45] VITALS: BP 127/77; PULSE 89; RESP 16; O2SAT 94
== END 2023-03-11 09:02 | disposition home or self-care (01) ==
PROVIDERS: PCP Family Medicine; Visit Provider Obstetrics & Gynecology
PROC: 0UDB8ZZ Extraction of Endometrium, Via Natural or Artificial Opening Endoscopic (ICD-10-PCS; CPT 58558; principal; 2023-03-11 07:15)
DX: N92.0 Excessive and frequent menstruation with regular cycle (principal); Z30.430 Encounter for insertion of intrauterine contraceptive device
CPT/HCPCS: 58558; 58300; 00952; 81025; 88305; A9270; J2250; J2704; J3010; J3490; J7120; J7298

== ENCOUNTER 2023-03-17 09:59 | Outpatient (CLI) | payer MEDICAID, SELFPAY ==
--- NOTE | 2023-03-17 10:15 | CRLHL7_ITS ---
For Patients: As a result of the Century Cures Act, medical imaging exams and procedure reports are released immediately into your electronic medical record. You may view this report before your referring provider. If you have questions, please contact your health care provider. BILATERAL SCREENING MAMMOGRAM WITH COMPUTER-AIDED DETECTION AND TOMOSYNTHESIS TECHNIQUE: CC and MLO views were obtained. These mammographic images have been obtained using full-field digital technique. These mammographic images were interpreted with the benefit of computer-aided detection. Breast tomosynthesis was used in this interpretation. COMPARISON FILM: None. This is a baseline study. FINDINGS: The breasts are heterogeneously dense, which may obscure small masses. IMPRESSION: There is no radiographic evidence for malignancy. ASSESSMENT: BI-RADS Category 1: Negative RECOMMENDATION: Routine screening mammogram in 1 year. A lay language report of this examination will be provided to the patient. JONATHAN VINCENT M.D. Diagnostic Radiologist [email or web address] MARY BETH/honey Transcribed: 03/17/2023, 2:[address]/Dictated by: Jonathan Vincent MD @ 03/17/2023 10:49:00 AM (Electronically Signed)
== END 2023-03-17 10:00 | disposition home or self-care (01) ==
LOC: MAMMO 10:00
PROVIDERS: PCP Family Medicine; Visit Provider Family Medicine
DX: Z12.31 Encounter for screening mammogram for malignant neoplasm of breast (principal); R92.2 Inconclusive mammogram
CPT/HCPCS: 77063; 77067

== ENCOUNTER 2023-03-25 14:55 | Outpatient (CLI) | payer MEDICAID, SELFPAY | END 2023-03-25 14:56 | disposition home or self-care (01) | LOC: NFLDREF 14:56 | PROVIDERS: PCP Family Medicine; Visit Provider Obstetrics & Gynecology | DX: R23.2 Flushing (principal) | CPT/HCPCS: 80053 ==

== ENCOUNTER 2023-11-23 14:26 | Outpatient (CLI) | payer MEDICAID, SELFPAY ==
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
--- NOTE | 2023-11-23 14:30 | CRLHL7_ITS ---
For Patients: As a result of the Century Cures Act, medical imaging exams and procedure reports are released immediately into your electronic medical record. You may view this report before your referring provider. If you have questions, please contact your health care provider. INDICATION: IUD placement check COMPARISON: 10/28/2022 TECHNIQUE: 2D ferreira scale and color Doppler images were acquired of the pelvis using a transabdominal and transvaginal approach. FINDINGS: Sonographic images demonstrate a normal size and smooth outer contour of the uterus. Uterus measures 9.1 cm in length by 3.7 cm in AP diameter by 6.0 cm in transverse dimension. The myometrium has a mildly heterogeneous echotexture. IUD is present in good position within the endometrial canal. Endometrium is not thickened. The right ovary measures 2.4 x 1.3 x 1.6 cm in size and the left ovary measures 3.9 x 2.2 x 2.3 cm. The ovaries demonstrate normal arterial and venous blood flow on color Doppler analysis. There are no suspicious fluid collections within the cul-de-sac. 1.7 cm simple left ovarian cyst. IMPRESSION: Normal position of the IUD within the endometrial canal. Dictated by Jonathan Jeronimo MD @ 11/24/2023 8:55:40 AM (Electronically Signed)
== END 2023-11-23 14:27 | disposition home or self-care (01) ==
LOC: US 14:27
PROVIDERS: PCP Family Medicine; Visit Provider Obstetrics & Gynecology
DX: R10.2 Pelvic and perineal pain (principal); T83.32XA Displacement of intrauterine contraceptive device, initial encounter
CPT/HCPCS: 76830; 76856

== ENCOUNTER 2024-09-28 07:03 | Outpatient (CLI) | payer OTHER, SELFPAY | END 2024-09-28 07:04 | disposition home or self-care (01) | PROVIDERS: PCP Family Medicine; Visit Provider Family Medicine | DX: Z11.3 Encounter for screening for infections with a predominantly sexual mode of transmission (principal); Z11.4 Encounter for screening for human immunodeficiency virus [HIV]; Z11.59 Encounter for screening for other viral diseases; Z11.51 Encounter for screening for human papillomavirus (HPV) | CPT/HCPCS: 86592; 86703; 86706; 86803; 87086; 87340; 87491; 87591 ==